=== PATIENT | male | born 1960 | race Caucasian/White ===

== ENCOUNTER 2016-11-18 21:36 | Inpatient (IN) | payer OTHER ==
[~2016-11-18] VITALS: Ht 172.7 cm; Wt 85.9 kg
[~2016-11-18 21:36] MED LIST: ASPI81 PO; BYST5TAB2 PO; LORA-474 PO; PRED5 PO; WELL150T PO; ZIPR1CAP27 PO
[2016-11-18 21:39] VITALS: BP 128/87; PULSE 68; RESP 18; TEMP 97.7; O2SAT 96
[2016-11-18] MEDS ORDERED: methylPREDNISolone SOD SUCC 125 MG/2 ML VIAL IVP ONE (22:00)
[2016-11-18] MEDS ORDERED: SODIUM CHLORIDE 0.9% FLUSH 5 ML FLUSH IVF PRN ×2 (22:00→23:30)
[2016-11-18] MEDS ORDERED: DILT90CA PO (22:03)
[2016-11-18] MEDS ORDERED: TRAZ100T4 PO (22:03)
[2016-11-18] MEDS ORDERED: LAMO150 PO (22:05)
[2016-11-18] MEDS ORDERED: CITA20TA4 PO (22:05)
[2016-11-18] MEDS ORDERED: ASPI81CH CHEW (22:05)
[2016-11-18] MEDS ORDERED: LOVA20TA PO (22:05)
[2016-11-18] MEDS: RESP: ALBUTEROL 2.5 MG/3 ML NEB (SCH) INH ×2 (22:05→22:06)
--- NOTE | 2016-11-18 22:16 | RADHPO ---
EXAM DATE/TIME: 11/18/2016 22:03 [facility] COMPARISON: No previous studies available for comparison. INDICATIONS : Shortness of breath. MEDICAL HISTORY : Hypertension. Myocardial infarction. Hiatal hernia. GERD, Gout SURGICAL HISTORY : Coronary artery stent. Appendectomy. Cholecystectomy. Inguinal hernia repair ENCOUNTER: Initial ACUITY: 1 week PAIN SCORE: 0/10 LOCATION: Bilateral chest FINDINGS: The heart size is enlarged. The lungs demonstrate diffuse increased interstitial markings. No focal consolidation is seen. No effusion is seen. CONCLUSION: Cardiomegaly with increased interstitial markings likely representing CHF. Lamine Harkins MD on November 18, 2016 at 22:10 Board Certified Radiologist. This report was verified electronically.
[2016-11-18 22:29] LABS: BASOPHIL # 0.1 TH/MM3 (0-0.2); EOSINOPHIL # 0.2 TH/MM3 (0-0.4); EOSINOPHIL % 3.3 % (0.0-4.0); HEMATOCRIT 32.9 % (39.0-51.0); HEMO FLAGS DIFF FINAL; LYMPH % 20.1 % (9.0-44.0); LYMPHOCYTE # 1.5 TH/MM3 (1.0-4.8); MEAN CORPUSCULAR HEMOGLOBIN 28.5 PG (27.0-34.0); MEAN CORPUSCULAR HGB CONC 32.7 % (32.0-36.0); MONO % 7.1 % (0.0-8.0); NEUT % 68.5 % (16.0-70.0); PLATELET COUNT 336 TH/MM3 (150-450); RED BLOOD COUNT 3.78 MIL/MM3 (4.50-5.90); RED CELL DISTRIBUTION WIDTH 13.6 % (11.6-17.2); WHITE BLOOD COUNT 7.3 TH/MM3 (4.0-11.0)
--- NOTE | 2016-11-18 22:29 | PD ---
HPI Chief Complaint: Respiratory Symptoms Time Seen by Provider: 21:52 Travel History International Travel<30 days: No Contact w/Intl Traveler<30days: No Traveled to known affect area: No History of Present Illness HPI 56-year-old male arrives to the ER complaining of shortness of breath. It has been bothersome for about 1 week. 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 Often he has to rest while working. He has a history of coronary artery disease with a stent. He takes aspirin daily. She's had no chest pain. He was seen and evaluated at an outside hospital about a week ago and diagnosed with cellulitis of the bilateral lower extremities and has been on Bactrim and amoxicillin. He was also diagnosed with streptococcal pharyngitis at that time. Cellulitic and pharyngitis symptoms have improved significantly however the shortness of breath has persisted prompting ER evaluation. PFSH Past Medical History Depression: Yes Cancer: No Cerebrovascular Accident: Yes (HEART ATTACK 2000/STENT PLACED) Diminished Hearing: No Endocrine: No GERD: Yes Gout: Yes Genitourinary: No Hiatal Hernia: Yes Hypertension: Yes Immune Disorder: No Inguinal Hernia: Yes (Repaired 2001) Implanted Vascular Access Dvce: Yes Musculoskeletal: Yes Neurologic: No Psychiatric: Yes Reproductive: No Respiratory: No Myocardial Infarction: Yes (2000) Tetanus Vaccination: < 5 Years Influenza Vaccination: No Past Surgical History Appendectomy: Yes (1972) Body Medical Devices: CARDIAC STENT Cardiac Surgery: Yes (Stent 2000) Cholecystectomy: Yes (1998) Other Surgery: Yes (Inguinal Hernia Repair 2001) Social History Alcohol Use: No (Hx Abuse; Sober 13 years.) Tobacco Use: Yes (1PPD) Substance Use: No (Hx ETOH Abuse - States sober 12 years; Experimentation & Use many yrs ago.) Allergies-Medications (Allergen,Severity, Reaction): Coded Allergies: Cipro (Verified Allergy, Mild, Rash, 11/18/16) Reported Meds & Prescriptions Reported Meds & Active Scripts Active Reported Aspirin 81 Mg Chew 81 Mg CHEW DAILY Lamictal (Lamotrigine) 150 Mg Tab 150 Mg PO DAILY Citalopram (Citalopram Hydrobromide) 20 Mg Tab 20 Mg PO DAILY Lovastatin 20 Mg Tab 20 Mg PO DAILY Trazodone (Trazodone HCl) 100 Mg Tab 100 Mg PO HS PRN Diltiazem ER 12 HR (Diltiazem HCl) 90 Mg Caper 90 Mg PO BID Review of Systems Except as stated in HPI: all other systems reviewed are Neg Physical Exam Narrative GENERAL: 56 yo M, WNWD, NAD SKIN: Warm and dry. HEAD: Atraumatic. Normocephalic. EYES: Pupils equal and round. No scleral icterus. No injection or drainage. ENT: No nasal bleeding or discharge. Mucous membranes pink and moist. NECK: Trachea midline. +JVD present. CARDIOVASCULAR: Regular rate and rhythm. RESPIRATORY: No tachypnea. Rales present bilaterally. Wheezing present bilaterally. GASTROINTESTINAL: Abdomen soft, non-tender, nondistended. Hepatic and splenic margins not palpable. MUSCULOSKELETAL: Occasional well healed LE skin lesions. No significant edema lower extremities. No gross deformity. NEUROLOGICAL: Awake and alert. No obvious cranial nerve deficits. Motor grossly within normal limits. Five out of 5 muscle strength in the arms and legs. Normal speech. PSYCHIATRIC: Appropriate mood and affect; insight and judgment normal. Data Data Last Documented VS Vital Signs Date Time Temp Pulse Resp B/P Pulse Ox O2 Delivery O2 Flow Rate FiO2 11/18/16 22:10 92 Nasal Cannula 2 11/18/16 22:10 82 24 11/18/16 21:39 97.7 128/87 Orders Complete Blood Count With Diff (11/18/16 21:58) Comprehensive Metabolic Panel (11/18/16 21:58) B-Type Natriuretic Peptide (11/18/16 21:58) Act Partial Throm Time (Ptt) (11/18/16 21:58) Prothrombin Time / Inr (Pt) (11/18/16 21:58) Ckmb (Isoenzyme) Profile (11/18/16 21:58) Troponin I (11/18/16 21:58) Blood Culture (11/18/16 21:58) Iv Access Insert/Monitor (11/18/16 21:58) Electrocardiogram (11/18/16 21:58) Ecg Monitoring (11/18/16 21:58) Oximetry (11/18/16 21:58) Oxygen Administration (11/18/16 21:58) Chest, Single Ap (11/18/16 21:58) Sodium Chloride 0.9% Flush (Ns Flush) (11/18/16 22:00) Methylprednisolone So Succ Inj (Solumedr (11/18/16 22:00) Albuterol Neb (Albuterol Neb) (11/18/16 22:00) Furosemide Inj (Lasix Inj) (11/18/16 22:30) CKMB (11/18/16 22:15) CKMB% (11/18/16 22:15) Admit Order (Ed Use Only) (11/18/16 23:16) Furosemide Inj (Lasix Inj) (11/18/16 23:30) Labs Laboratory Tests Test 11/18/16 22:15 White Blood Count 7.3 TH/MM3 Red Blood Count 3.78 MIL/MM3 Hemoglobin 10.8 GM/DL Hematocrit 32.9 % Mean Corpuscular Volume 87.0 FL Mean Corpuscular Hemoglobin 28.5 PG Mean Corpuscular Hemoglobin 32.7 % Concent Red Cell Distribution Width 13.6 % Platelet Count 336 TH/MM3 Mean Platelet Volume 7.4 FL Neutrophils (%) (Auto) 68.5 % Lymphocytes (%) (Auto) 20.1 % Monocytes (%) (Auto) 7.1 % Eosinophils (%) (Auto) 3.3 % Basophils (%) (Auto) 1.0 % Neutrophils # (Auto) 5.0 TH/MM3 Lymphocytes # (Auto) 1.5 TH/MM3 Monocytes # (Auto) 0.5 TH/MM3 Eosinophils # (Auto) 0.2 TH/MM3 Basophils # (Auto) 0.1 TH/MM3 CBC Comment DIFF FINAL Differential Comment Prothrombin Time 12.2 SEC Prothromb Time International 1.1 RATIO Ratio Activated Partial 29.4 SEC Thromboplast Time Sodium Level 137 MEQ/L Potassium Level 4.3 MEQ/L Chloride Level 104 MEQ/L Carbon Dioxide Level 24.1 MEQ/L Anion Gap 9 MEQ/L Blood Urea Nitrogen 28 MG/DL Creatinine 0.92 MG/DL Estimat Glomerular Filtration 84 ML/MIN Rate Random Glucose 100 MG/DL Calcium Level 8.4 MG/DL Total Bilirubin 0.3 MG/DL Aspartate Amino Transf 78 U/L (AST/SGOT) Alanine Aminotransferase 103 U/L (ALT/SGPT) Alkaline Phosphatase 170 U/L Total Creatine Kinase 108 U/L Creatine Kinase MB 3.8 NG/ML Troponin I 0.05 NG/ML B-Type Natriuretic Peptide 2348 PG/ML Total Protein 6.9 GM/DL Albumin 3.0 GM/DL MDM Medical Decision Making Medical Screen Exam Complete: Yes Emergency Medical Condition: Yes Medical Record Reviewed: Yes Differential Diagnosis CHF, anemia, pna, ACS, COPD exacerbation Narrative Course EKG: Sinus, rate 58, q waves septal leads CXR: Cardiomegaly, interstitial disease c/w CHF BNP 2300 Tn 0.05 CBC & BMP Diagram 11/18/16 22:15 Pt has new CHF. Lasix started here 20mg x 2. Pt will be admitted for further diagnostic evaluation and treatment. D/w [facility] Sutton [facility] PMD is Lamine Manuel. Pt has yet to be seen in that office. Apparently initial paperwork was completed earlier today. Diagnosis Primary Impression: CHF (congestive heart failure) Qualified Code: I50.9 - Congestive heart failure, unspecified congestive heart failure chronicity, unspecified congestive heart failure type Additional Impression: Dyspnea Qualified Code: R06.00 - Dyspnea, unspecified type Admitting Information Admitting Physician Requests: Lex Christina MD Nov 18, 2016 22:29
[2016-11-18 22:30] VITALS: O2SAT 92
[2016-11-18] MEDS ORDERED: FUROSEMIDE 20 MG/2 ML VIAL IV PUSH ONE ×2 (22:30→23:30)
[2016-11-18 22:45] LABS: CHLORIDE 104 MEQ/L (98-107); POTASSIUM 4.3 MEQ/L (3.5-5.1); SODIUM (NA) 137 MEQ/L (136-145)
[2016-11-18 22:49] LABS: ANION GAP 9 MEQ/L (5-15); BICARBONATE 24.1 MEQ/L (21.0-32.0); BLOOD UREA NITROGEN 28 MG/DL (7-18)
[2016-11-18 22:51] LABS: APTT (PATIENT) 29.4 SEC (24.3-30.1); INTERNATIONAL NORMALIZED RATIO 1.1 RATIO; PROTHROMBIN TIME - PATIENT 12.2 SEC (9.8-11.6)
[2016-11-18 22:52] LABS: ALT (GPT) 103 U/L (12-78); AST (GOT) 78 U/L (15-37); GLOMERULAR FILTRATION RATE 84 ML/MIN (>89)
[2016-11-18 22:54] LABS: TOTAL BILIRUBIN ADULT 0.3 MG/DL (0.2-1.0)
[2016-11-18 22:55] LABS: ALKALINE PHOSPHATASE 170 U/L (45-117); CREATINE KINASE 108 U/L (39-308)
[2016-11-18 23:07] LABS: CKMB 3.8 NG/ML (0.5-3.6)
[2016-11-18 23:24] VITALS: BP 117/80; PULSE 72; RESP 20; TEMP 98.1; O2SAT 92
[2016-11-19] VITALS (10 sets, daily range): BP systolic 103–124; BP diastolic 64–88; PULSE 62–92; RESP 16–20; TEMP 96.6–98.4; O2SAT 94–99
[2016-11-19 06:17] LABS: POTASSIUM 4.1 MEQ/L (3.5-5.1)
[2016-11-19 06:20] LABS: BICARBONATE 24.6 MEQ/L (21.0-32.0)
[2016-11-19] MEDS: FUROSEMIDE 40 MG/4 ML VIAL IVP SCH ×2 (08:55→16:43)
[2016-11-19] MEDS: ENOXAPARIN SODIUM 40 MG/0.4 ML SYRINGE SQ SCH (08:55)
[2016-11-19] MEDS: ASPIRIN 81 MG CHEW TAB CHEW SCH (08:55)
[2016-11-19] MEDS: SODIUM CHLORIDE 0.9% FLUSH 5 ML FLUSH IVF SCH ×2 (08:56→22:12)
[2016-11-19] MEDS ORDERED: PRAVASTATIN SOD 20 MG TAB PO SCH (09:00)
[2016-11-19] MEDS ORDERED: DILTIAZEM-CD 180 MG CAP ER PO SCH (09:00)
[2016-11-19] MEDS ORDERED: ASPIRIN 81 MG CHEW TAB CHEW SCH (09:00)
[2016-11-19] MEDS: lamoTRIgine 100 MG TAB PO SCH (09:00)
[2016-11-19] MEDS ORDERED: PILL SPLITTER OTHER PRN (09:15)
[2016-11-19] MEDS: SULFAMETHOXAZOLE-TRIMETHOPRIM DS 800-160 MG TAB PO SCH ×2 (09:59→22:12)
[2016-11-19] MEDS: LISINOPRIL 5 MG TAB PO SCH (09:59)
[2016-11-19] MEDS: CITALOPRAM HYDROBROMIDE 20 MG TAB PO SCH (09:59)
--- NOTE | 2016-11-19 10:02 | MH ---
cc: SEDA CRABTREE MD DATE OF ADMISSION: 11/18/2016 DATE OF His 1960 ADMISSION DIAGNOSES 1. Congestive heart failure. 2. History of coronary artery disease with prior PTCA and stent and prior MA in 2000. 3. Hypertension. 4. Hyperlipidemia. 5. Chronic depression. 6. Gastroesophageal reflux disease/hiatal hernia. 7. History of esophageal dilations. 8. Recent strep throat. 9. Recent MRSA skin infections on the lower extremities. 10. Mildly elevated liver function tests. PERTINENT HISTORY This is a 56-year-old white male who came in because of progressive increasing shortness of breath mainly on exertion over the last 9-10 days. He actually was in the emergency room at [facility] earlier on the . He then had a sore throat and these skin sores on both lower extremities. He was put on Bactrim DS for what sounds like MRSA infection and then a throat swab was positive for strep and was put on amoxicillin which he has been taking. He states that the throat symptoms have resolved and the sores have dried up and are scabbed over now. He has no fever. His main symptom has just been the progressive shortness of breath. He had no chest pain. He has never had congestive heart failure. In the ED his BNP was 2348. Chest x-ray showed cardiomegaly with increased interstitial markings likely representing CHF. He was put on diuretic therapy last night in the ED and states his breathing is much better this morning. He is not in any distress. MEDICAL HISTORY He had a heart attack in 2000 with a PTCA and stent placed by Dr. Bravo his erp technical lead. He is under treatment for hypertension, hyperlipidemia. He denies any heart failure. He denies any lung disease. No asthma, TB, pneumonia. Denies any COPD. He is not on any breathing medication. He denies any diabetes, liver or kidney disease. No peptic ulcer disease. He has had gastroesophageal reflux disease and hiatal hernia and also has had esophageal dilation three to four times. He has had no cancer, prostate disease or thyroid problems. No colon disease and no history of polyps. He states he had a colonoscopy around 2011 and there was only one that was negative. He is under treatment for chronic depression. PAST SURGICAL HISTORY 1. Appendectomy. 2. Tonsillectomy and adenoidectomy. 3. Wing teeth extraction. 4. Laparoscopic cholecystectomy. 5. Appendectomy. 6. PTCA with stent. 7. Laparoscopic right inguinal hernia repair with mesh. ALLERGIES APPARENTLY HE HAD HIVES WITH CIPRO IN THE PAST. HE ALSO HAD HIVES A YEAR OR SO AGO AND WENT TO AN MAGNETIC PROSPECTOR AND WAS TAKEN OFF TOPROL AND HIS HIVES WENT AWAY. HE HAD A PROBLEM WITH A MEDICATION THAT IS NO LONGER ON THE MARKER VIOXX. MEDICATIONS 1. Aspirin 81 mg daily. 2. Lamictal 150 mg daily as a mood stabilizer for his depression. 3. Citalopram 20 mg a day for depression. 4. Lovastatin 20 mg a day for hyperlipidemia. 5. Trazodone 100 mg that he uses for sleep. 6. Diltiazem Extended Release 90 mg twice a day. FAMILY HISTORY His parents are living and elderly, he cares for them. His mother is age 86, she has stage IV chronic kidney disease, she has a history of CHF. Father is also living and 84, a retired physician. He has heart disease, prior coronary artery bypass grafting. He has had diabetes, hypertension, hyperlipidemia, depression. SOCIAL HISTORY He has never been . He lives and takes care of his parents. He started smoking at age 26 and smokes half to one pack a day approximately 30 years now. He rarely uses alcohol. 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 REVIEW OF SYSTEMS GENERAL: No fever, chills, sweats. HEENT: He had the recent sore throat, diagnosed with strep. He is still finishing up a couple more days of amoxicillin. His symptoms have resolved. No runny nose. CARDIOVASCULAR: No chest pain. He has had the exertional dyspnea as mentioned. No significant cough. GASTROINTESTINAL: No current heartburn, indigestion. No melena, rectal bleeding, diarrhea or constipation. GENITOURINARY: No dysuria, urgency, frequency. EXTREMITIES: Without swelling. SKIN: As mentioned. NEUROLOGIC: No focal findings. PHYSICAL EXAMINATION GENERAL: A pleasant white male in no acute distress. VITAL SIGNS: His temp is 96.9, pulse 69, respiration 18, BP 120/79, O2 sat 97%. HEENT: TMs clear. Pupils equal. Sclerae are nonicteric. Nose without lesion. Mouth without inflammation or lesion. NECK: Without bruit. No JVD. HEART: Regular rate and rhythm. No murmur. LUNGS: Just some very faint crackles in the bases. ABDOMEN: Abdomen is soft, nontender, no masses. EXTREMITIES: No edema. Pulses good in both feet. SKIN: He has some has dried up skin lesions that are scabbed over on both lower extremities primarily on the anterior lower legs consistent with probably a recent MRSA infection that seems to be resolved with the antibiotics. There are no draining lesions. No significant redness of the skin. NEUROLOGIC: Oriented x3. Cranial nerves intact. Motor and sensory intact. IMAGING Chest x-ray with cardiomegaly and mild interstitial edema consistent with heart failure. LABORATORY DATA Troponin was 0.05, albumin 3.0, total protein 6.9, sodium 137, potassium 4.3, chloride 104, CO2 24.1, BUN 28, creatinine 0.92, GFR 84, glucose 100, bilirubin normal. His AST and ALT were mildly elevated at 78 and 103 respectively. His alkaline phosphatase a little elevated at 170. Total CK was 108 which was normal. His BNP was 2348 last night and 2380 today. His troponin this morning was 0.03. ASSESSMENT As noted. PLAN He will be maintained on diuretic. A 2D echo has been ordered. We will repeat a chest x-ray today. Cardiology has been consulted. He is on diuretic therapy for now. We will hold the statin drug due to his elevated liver function test. We will put him on a low dose of lisinopril as his blood pressure is a little toward the low side so we will just maintain him on a low dose of lisinopril. Clinically he is much better and he will probably be able to be discharged tomorrow unless Cardiology thinks he can go home sooner. He will need to followup on his liver function tests as an outpatient with his primary care physician Dr. Faust. He was just a little anemic and told him he should followup with him about that as well. MD YASMANY Burton/ALISA /8:50 AM /9:05 AM
--- NOTE | 2016-11-19 11:16 | RADHPO ---
EXAM DATE/TIME: 11/19/2016 10:43 [facility] COMPARISON: No previous studies available for comparison. INDICATIONS : New onset CHF, cough, short of breath MEDICAL HISTORY : None. SURGICAL HISTORY : None. ENCOUNTER: Subsequent ACUITY: 2 days PAIN SCORE: 0/10 LOCATION: Bilateral chest FINDINGS: PA and lateral views of the chest demonstrate the lungs to be symmetrically aerated without evidence of mass, infiltrate or effusion. A small underlying bilaterally. Some crowding of the bronchovascular markings. The cardiomediastinal contours are unremarkable. Osseous structures are intact. CONCLUSION: Some crowding of the bronchovascular markings with small lung volumes. No obvious foc al infiltrate. Jaxon Martin MD on November 19, 2016 at 11:14 Board Certified Radiologist. This report was verified electronically.
[2016-11-19] MEDS: AMOXICILLIN 875 MG TAB PO SCH ×2 (11:42→22:12)
--- NOTE | 2016-11-19 12:34 | MB ---
cc: RICKY GOSS MD DATE OF CONSULTATION: 11/19/2016 REASON FOR CONSULTATION: New onset congestive heart failure. HISTORY OF PRESENT ILLNESS: The patient is a very pleasant 56 year-old gentleman with a history of coronary artery disease, with a previous stent placed by Dr. 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 He does say he had a nuclear stress test about a year ago which she said did not show any problems but it is unclear the exact results. Over the last several weeks the patient has been having some sores appear his leg and he was told he had MRSA and was given antibiotics and cream but this has not been effective. These have been getting worse and over the last couple days he began having more shortness of breath with orthopnea and because of the symptoms he presented to the emergency department in clinical congestive heart failure. He was started on Lasix and is feeling better not completely back to baseline though he denies chest pain, lightheadedness, dizziness, syncope. PAST MEDICAL HISTORY 1. Coronary artery disease status post remote stent. 2. MRSA. 3. Cellulitis 4. Myocardial infarction. 5. Tobacco abuse. MEDICATIONS home medications include; 1. Aspirin 2. Lamictal. 3. Saltpan 4. Lovastatin. 5. Trazodone. 6. Diltiazem. 7. Current medications include. Lisinopril 2.5 mg daily. 8. Amoxicillin 9. Lasix 40 mg IV b.i.d. 10. Lovenox 40 mg Subcu q. 12. 11. Aspirin 81 milligrams daily. 12. Celexa 13. Lamictal 14. Cardizem 180 mg daily. ALLERGIES CIPRO PHYSICAL EXAMINATION VITAL SIGNS: Afebrile, pulse 72, respiratory rate 16, BP 116/77 satting 97% on 2 liters. IN GENERAL: Very pleasant well-appearing gentleman in no distress. NECK: No JVD. LUNGS: Decreased breath sounds in the bases bilaterally. CARDIOVASCULAR SYSTEM: Regular rate and rhythm at a 1-2/6 systolic murmurs appreciated. ABDOMEN: Abdomen is benign. EXTREMITIES: No edema of multiple post cellulitic lesions are present. LABORATORY DATA Sodium 36,004.1513, bicarb 24.6, BUN 21, creatinine 0.89, glucose 127. Troponins are negative x2. BNP is 2380, white count 7.3, hematocrit 32.9, platelets used 36. EKG shows a life fluids. Return. Start EKG showed good appears to be a junctional rhythm that 58, though with possible he has either a very long first-degree AV block were very small P-waves which are difficult to the her difficult to interpret this particular 12-lead and 78, 12, we will be repeated IMPRESSION 1. Congestive heart failure, The patient likely has acute systolic congestive heart failure. An echocardiogram will be ordered to confirm his LV function. Another possibility is valvular Congestive heart failure due to endocarditis given his infectious process but do not hear any major murmurs on his exam blood cultures are currently pending as well as an echocardiogram. Should his echocardiogram or blood cultures be more concerning for endocarditis. I would then consider Transesophageal echocardiogram at that point. Regarding his medication. He is already on IV Lasix and CRISTIAN inhibitor I will change his calcium channel jameson to the beta jameson for presumed systolic dysfunction. 2. Cellulitis. He is already on antibiotics and the other infectious management plan as detailed above. Further recommendations based on his clinical course. Thank you again for the opportunity to participate this patient's care. MD GRACE Singh/brady /9:28 AM /12:26 PM
--- NOTE | 2016-11-19 14:31 | EKG ---
Date Performed: 11/18/2016 Time Performed: 22:16:36 PTAGE: 56 years EKG: Sinus bradycardia Prolonged QT interval Possible anterior infarct - age undetermined Inferi or T wave changes are nonspecific Compared to previous tracing, QTC has prolonged Clinical correlatio n reccomended Abnormal ECG PREVIOUS TRACING : 06/12/2010 09.37 DOCTOR: Harsh Israel Interpretating Date/Time 11/19/2016 14:29:34
--- NOTE | 2016-11-19 14:33 | EKG ---
Date Performed: 11/18/2016 Time Performed: 22:29:40 PTAGE: 56 years EKG: Possible idioventricular rhythm with slow ventricular response IV conduction defect Anterio r infarct - age undetermined Lateral T wave changes are nonspecific Prolonged corrected QT interval, continues to increase Clincal correlation reccomended Abnormal ECG PREVIOUS TRACING : 11/18/2016 22.16 DOCTOR: Harsh Israel Interpretating Date/Time 11/19/2016 14:32:04
--- NOTE | 2016-11-19 16:48 | RADHPO ---
EXAM DATE/TIME: 11/19/2016 20:43 [facility] COMPARISON: No previous studies available for comparison. INDICATIONS : Elevated LFT's. MEDICAL HISTORY : Hypertension. Myocardial infarction. SURGICAL HISTORY : Cholecystectomy. Appendectomy. Inguinal hernia repair. Cardiac stent. ENCOUNTER: Initial ACUITY: 1 day PAIN SCORE: 0/10 LOCATION: Bilateral upper quadrant MEASUREMENTS: LIVER: 19.6 cm length COMMON DUCT: 5 mm RIGHT KIDNEY: 11.0 x 5.0 x 6.0 cm LEFT KIDNEY: 11.6 x 6.4 x 5.0 cm SPLEEN: 12.1 cm length AORTA: not visualized FINDINGS: LIVER: The liver is small and echogenic.. COMMON DUCT: No intraluminal mass or stone visualized. GALLBLADDER: Surgically absent. PANCREAS: By overlying bowel gas. RIGHT KIDNEY: No hydronephrosis, stone or mass. LEFT KIDNEY: No hydronephrosis, stone or mass. SPLEEN: No focal lesion. AORTA: Non aneurysmal. IVC: Within normal limits. CONCLUSION: Small echogenic liver with right pleural effusion. There is no hydronephrosis. There is no ductal d ilatation. Elijah Calhoun MD FACR on November 19, 2016 at 16:43 Board Certified Radiologist. This report was verified electronically.
--- NOTE | 2016-11-19 17:32 | EC ---
Study Study Date:11/19/2016 STUDY CONCLUSIONS SUMMARY - Left ventricle: The cavity size was mildly dilated. Wall thickness was normal. Systolic function was severely reduced. The estimated ejection fraction was in the range of 25% to 30%. Akinesis of the apical myocardium. - Mitral valve: Moderate regurgitation. - Left atrium: The atrium was mildly dilated. - Tricuspid valve: Moderate regurgitation. - Pulmonary arteries: Systolic pressure was moderately to severely increased. PA peak pressure: 75mm Hg (S). - Pericardium, extracardiac: A trivial pericardial effusion was identified. There was no evidence of hemodynamic compromise. If LV function is below 40, please consider prescribing an ACEI or ARB or document rationale for non-use. PROCEDURE DATA STUDY STATUS: Elective. Procedure: Transthoracic echocardiography. Image quality was good. Scanning was performed from the parasternal, apical, and subcostal acoustic windows. Study completion: The patient tolerated the procedure well. Transthoracic echocardiography. M-mode, complete 2D, complete spectral Doppler, and color Doppler. Patient status: Inpatient. CARDIAC ANATOMY LEFT VENTRICLE: The cavity size was mildly dilated. Wall thickness was normal. Systolic function was severely reduced. The estimated ejection fraction was in the range of 25% to 30%. Regional wall motion abnormalities: Akinesis of the apical myocardium. AORTIC VALVE: Trileaflet; normal thickness leaflets. Doppler: Transvalvular velocity was within the normal range. There was no stenosis. Trace to mild regurgitation. AORTA: Aortic root: The aortic root was normal in size. MITRAL VALVE: Structurally normal valve. Doppler: Transvalvular velocity was within the normal range. There was no evidence for stenosis. Moderate regurgitation. Peak gradient: 4mm Hg (D). LEFT ATRIUM: The atrium was mildly dilated. RIGHT VENTRICLE: The cavity size was normal. Wall thickness was normal. PULMONIC VALVE: Doppler: Transvalvular velocity was within the normal range. There was no evidence for stenosis. No regurgitation. TRICUSPID VALVE: Structurally normal valve. Doppler: Transvalvular velocity was within the normal range. Moderate regurgitation. PULMONARY ARTERY: The main pulmonary artery was normal-sized. Systolic pressure was moderately to severely increased. RIGHT ATRIUM: The atrium was normal in size. PERICARDIUM: A trivial pericardial effusion was identified. There was no evidence of hemodynamic compromise. SYSTEMIC VEINS: Inferior vena cava: The vessel was normal in size. BASIC MEASUREMENTS ADULT Normal Left ventricle LV internal dimension, ED, chordal level, *62.1 mm 43-52 PLAX LV internal dimension, ES, chordal level, *55.8 mm 23-38 PLAX Fractional shortening, chordal level, PLAX *10 % >29 LV posterior wall thickness, ED 7.7 mm IVS/LVPW ratio, ED *1.66 <1.3 Volume, ED, MOD, 1-plane 318 ml Volume, ES, MOD, 1-plane 235 ml Ejection fraction, MOD, 1-plane 26 % Stroke volume, MOD, 1-plane 83 ml Volume, ED, MOD, 2-plane 289 ml Volume, ES, MOD, 2-plane 216 ml Ejection fraction, MOD, 2-plane 25 % Stroke volume, MOD, 2-plane 73 ml Ventricular septum Septal thickness, ED 12.8 mm Aortic valve Leaflet separation 23 mm 15-26 Left atrium Anterior-posterior dimension 42 mm Right ventricle RV internal dimension, ED, PLAX 23.6 mm 19-38 BASIC MEASUREMENTS ADULT Normal Aortic valve Leaflet separation 23 mm 15-26 Aorta Root diameter, ED *40 mm 20-37 DOPPLER MEASUREMENTS ADULT Normal Main pulmonary artery Pressure, S *75 mm Hg =30 Mitral valve Peak E-wave velocity 105 cm/s Peak A-wave velocity 43.2 cm/s Peak gradient, D 4 mm Hg Peak E/A ratio 2.4 Maximal regurgitant velocity 471 cm/s Tricuspid valve Regurgitant peak velocity 379 cm/s Peak RV-RA gradient, S 57 mm Hg Maximal regurgitant velocity 379 cm/s Systemic veins Estimated CVP 10 mm Hg Right ventricle RV pressure, S *75 mm Hg <30 LEGEND: Mean values are shown as u=mean value. Asterisk (*) arnold values outside specified normal range. Amended Dieter Stephens [id number]
[2016-11-19] MEDS: traZODone HCL 100 MG TAB PO PRN (22:18)
[2016-11-20] VITALS (8 sets, daily range): BP systolic 105–119; BP diastolic 70–86; PULSE 60–70; RESP 16–20; TEMP 96.7–98.7; O2SAT 94–97
--- NOTE | 2016-11-20 07:04 | HHI.PR ---
Subjective Remarks No chest pain. No shortness of breath. He states he feels much better. Objective Vitals Vital Signs Date Time Temp Pulse Resp B/P Pulse Ox O2 Delivery O2 Flow Rate FiO2 11/20/16 04:00 98.0 70 16 110/82 97 11/20/16 00:00 97.9 66 18 109/79 96 11/19/16 20:59 97.5 78 16 103/70 94 11/19/16 20:00 82 11/19/16 16:00 98.3 74 18 124/86 97 11/19/16 12:00 98.3 62 18 120/86 97 11/19/16 08:00 73 11/19/16 08:00 98.0 72 16 116/77 97 11/19/16 11/19/16 11/20/16 15:00 23:00 07:00 Intake Total 0 ml 0 ml Output Total 850 ml 1350 ml Balance -850 ml -1350 ml 0 ml Intake IV Total 0 ml 0 ml Output Urine Total 850 ml 1350 ml Result Diagram: 11/18/16 2215 11/19/16 0600 Other Results Lab today pending Imaging Last Impressions Chest X-Ray 11/19/16 0000 Signed Impressions: Service Date/Time: Saturday, November 19, 2016 10:43 - CONCLUSION: Some crowding of the bronchovascular markings with small lung volumes. No obvious focal infiltrate. Jaxon Martin MD Last Impressions 2D echo showed akinesis of the apical myocardium and an EF of 25-30%. His pulmonary artery pressure was elevated at 75mm Hg. There was moderate mitral regurgitation Objective Remarks Exam: Pleasant white male in no distress HEENT: pupils equal, no scleral icterus, mouth neg Neck: No JVD Heart: RRR with grade 1/6 systolic murmur Lung: Appear clear Abdomen: Soft, nontender, no masses Extremities: No edema Skin: He has some nondraining scabbed over skin lesions on both legs c/w healing MRSA infection Neuro: Alert, no deficits A/P Assessment and Plan Assessment: --Congestive heart failure that is clinical much improved. His 2D echo showed an EF of 25-30% with akinesis of the apical myocardium --Coronary artery disease with prior CT and prior PTCA with stent --Hypertension --Hyperlipidemia --Elevated liver function tests--possibly secondary to statin drug --Chronic major depression--stable on medication --Pulmonary hypertension --GERD/Hiatal hernia/Hx of esophageal dilations in the past --MRSA skin infection--pretty much resolved on Bactrim Plan: Continue Lisinopril and Carvedilol. Patient is on Lasix. Further cardiac workup as per cardiology. Continue antibiotics. Harsh Sutton MD Nov 20, 2016 07:04
[2016-11-20 07:56] LABS: AUTOMATED NEUTROPHIL # 7.1 TH/MM3 (1.8-7.7); BASOPHIL % 0.1 % (0.0-2.0); EOSINOPHIL # 0.1 TH/MM3 (0-0.4); HEMO FLAGS DIFF FINAL; LYMPH % 19.1 % (9.0-44.0); MEAN CELL VOLUME 87.5 FL (80.0-100.0); MEAN CORPUSCULAR HEMOGLOBIN 29.5 PG (27.0-34.0); MEAN CORPUSCULAR HGB CONC 33.7 % (32.0-36.0); MONO % 10.5 % (0.0-8.0); NEUT % 69.3 % (16.0-70.0); PLATELET COUNT 366 TH/MM3 (150-450); RED CELL DISTRIBUTION WIDTH 13.6 % (11.6-17.2); WHITE BLOOD COUNT 10.3 TH/MM3 (4.0-11.0)
[2016-11-20 08:03] LABS: POTASSIUM 3.9 MEQ/L (3.5-5.1)
[2016-11-20 08:07] LABS: BICARBONATE 28.5 MEQ/L (21.0-32.0)
[2016-11-20] MEDS: AMOXICILLIN 875 MG TAB PO SCH ×2 (08:36→23:15)
[2016-11-20] MEDS: SULFAMETHOXAZOLE-TRIMETHOPRIM DS 800-160 MG TAB PO SCH ×2 (08:37→23:15)
[2016-11-20] MEDS: CITALOPRAM HYDROBROMIDE 20 MG TAB PO SCH (08:37)
[2016-11-20] MEDS: ASPIRIN 81 MG CHEW TAB CHEW SCH (08:37)
[2016-11-20] MEDS: LISINOPRIL 5 MG TAB PO SCH (08:38)
[2016-11-20] MEDS: lamoTRIgine 100 MG TAB PO SCH (08:39)
[2016-11-20] MEDS: FUROSEMIDE 40 MG/4 ML VIAL IVP SCH ×2 (08:40→17:42)
[2016-11-20] MEDS: SODIUM CHLORIDE 0.9% FLUSH 5 ML FLUSH IVF SCH ×2 (08:41→23:14)
[2016-11-20] MEDS: ENOXAPARIN SODIUM 40 MG/0.4 ML SYRINGE SQ SCH (08:41)
[2016-11-20] MEDS ORDERED: LISINOPRIL 5 MG TAB PO SCH (09:00)
[2016-11-20] MEDS ORDERED: CARVEDILOL 3.125 MG TAB PO SCH (09:00)
--- NOTE | 2016-11-20 09:05 | PD.CARD.PN ---
Subjective Subjective Remarks Still mild sob but significantly improved. Objective Medications Administered Medications Medications (Trade) Dose Ordered Sig/Bradley Route PRN Reason Start Time Stop Time Status Last Admin Dose Admin IV Flush (NS Flush) 2 ml BID IVF 11/19/16 09:00 11/20/16 08:41 Furosemide (Lasix Inj) 40 mg BID@09,18 IVP 11/19/16 09:00 11/20/16 08:40 Enoxaparin Sodium (Lovenox Inj) 40 mg Q24H SQ 11/19/16 09:00 11/20/16 08:41 Aspirin (Aspirin Chew) 81 mg DAILY CHEW 11/19/16 09:00 11/20/16 08:37 Citalopram Hydrobromide (CeleXA) 20 mg DAILY PO 11/19/16 09:00 11/20/16 08:37 Lamotrigine (LaMICtal) 150 mg DAILY PO 11/19/16 09:00 11/20/16 08:39 Trazodone HCl (Desyrel) 100 mg HS PRN PO PAIN SCALE 1 TO 10 11/19/16 08:45 11/19/16 22:18 Trimethoprim/ Sulfamethoxazole (Bactrim Ds 800-160 Mg) 1 tab Q12HR PO 11/19/16 09:00 11/20/16 08:37 Amoxicillin (Trimox) 875 mg Q12HR PO 11/19/16 10:00 11/20/16 08:36 Lisinopril (Prinivil) 2.5 mg DAILY PO 11/19/16 10:00 11/20/16 08:38 Carvedilol (Coreg) 3.125 mg Q12HR PO 11/20/16 09:00 11/20/16 08:38 Vital Signs / I&O Vital Signs Date Time Temp Pulse Resp B/P Pulse Ox O2 Delivery O2 Flow Rate FiO2 11/20/16 08:00 97.3 65 18 119/86 95 11/20/16 04:00 98.0 70 16 110/82 97 11/20/16 00:00 97.9 66 18 109/79 96 11/19/16 20:59 97.5 78 16 103/70 94 11/19/16 20:00 82 11/19/16 16:00 98.3 74 18 124/86 97 11/19/16 12:00 98.3 62 18 120/86 97 I/O 11/19/16 11/19/16 11/19/16 11/20/16 11/20/16 11/20/16 07:00 15:00 23:00 07:00 15:00 23:00 Intake Total 0 ml 0 ml Output Total 1950 ml 850 ml 1350 ml Balance -1950 ml -850 ml -1350 ml 0 ml Intake IV Total 0 ml 0 ml Output Urine Total 1950 ml 850 ml 1350 ml # Voids 7 Physical Exam GENERAL: This is a well-nourished, well-developed patient, in no apparent distress. CARDIOVASCULAR: Regular rate and rhythm without murmurs, gallops, or rubs. RESPIRATORY: Clear to auscultation. Breath sounds equal bilaterally. No wheezes , rales, or rhonchi. GASTROINTESTINAL: Abdomen soft, non-tender, nondistended. Normal active bowel sounds MUSCULOSKELETAL: Extremities without clubbing, cyanosis, or edema; multiple infectious lesions present NEURO: Alert & Oriented x4 to person, place, time, situation. Moves all ext x4 Laboratory Laboratory Tests Test 11/19/16 11/20/16 10:30 06:45 Troponin I 0.02 NG/ML White Blood Count 10.3 TH/MM3 Red Blood Count 4.00 MIL/MM3 Hemoglobin 11.8 GM/DL Hematocrit 35.0 % Mean Corpuscular Volume 87.5 FL Mean Corpuscular Hemoglobin 29.5 PG Mean Corpuscular Hemoglobin 33.7 % Concent Red Cell Distribution Width 13.6 % Platelet Count 366 TH/MM3 Mean Platelet Volume 7.6 FL Neutrophils (%) (Auto) 69.3 % Lymphocytes (%) (Auto) 19.1 % Monocytes (%) (Auto) 10.5 % Eosinophils (%) (Auto) 1.0 % Basophils (%) (Auto) 0.1 % Neutrophils # (Auto) 7.1 TH/MM3 Lymphocytes # (Auto) 2.0 TH/MM3 Monocytes # (Auto) 1.1 TH/MM3 Eosinophils # (Auto) 0.1 TH/MM3 Basophils # (Auto) 0.0 TH/MM3 CBC Comment DIFF FINAL Differential Comment Sodium Level 138 MEQ/L Potassium Level 3.9 MEQ/L Chloride Level 102 MEQ/L Carbon Dioxide Level 28.5 MEQ/L Anion Gap 8 MEQ/L Blood Urea Nitrogen 22 MG/DL Creatinine 1.00 MG/DL Estimat Glomerular Filtration 77 ML/MIN Rate Random Glucose 97 MG/DL Calcium Level 8.2 MG/DL B-Type Natriuretic Peptide 1615 PG/ML Imaging Last Impressions Chest X-Ray 11/19/16 0000 Signed Impressions: Service Date/Time: Saturday, November 19, 2016 10:43 - CONCLUSION: Some crowding of the bronchovascular markings with small lung volumes. No obvious focal infiltrate. Jaxon Martin MD Assessment and Plan Problem List: (1) Ischemic cardiomyopathy Assessment and Plan: LVEF 25-30%, apical akinesis, on brayan/bb, he declines life- vest, will get a nuc stress to eval for active ischemia. (2) Acute on chronic systolic (congestive) heart failure Assessment and Plan: Improving on lasix. (3) Coronary artery disease Assessment and Plan: prior stent, LAD infarct pattern by echo, nuc stress pending. (4) Infection of skin due to methicillin resistant Staphylococcus aureus (MRSA) Dieter Stephens MD Nov 20, 2016 09:05
[2016-11-20] MEDS: NICOTINE 14 MG/24 HR PATCH TD SCH (14:24)
[2016-11-20] MEDS: REMOVE OLD NICODERM (NICOTINE) PATCH TD SCH (14:24)
--- NOTE | 2016-11-20 15:59 | EKG ---
Date Performed: 11/19/2016 Time Performed: 10:27:06 PTAGE: 56 years EKG: Sinus rhythm . Prolonged QT interval Anterior infarct - age undetermined Inferior T wave changes are nonspecific A ppears to be paced rhythm with small pacer spikes seen in V1,V2,V3 Clinical correlation is strongly r ecommended Largely unchanged from prior Abnormal ECG PREVIOUS TRACING : 11/18/2016 22.29 DOCTOR: Harsh Israel Interpretating Date/Time 11/20/2016 15:57:10
[2016-11-20] MEDS: traZODone HCL 100 MG TAB PO PRN (23:14)
[2016-11-20] MEDS: CARVEDILOL 6.25 MG TAB PO SCH (23:15)
[2016-11-21] VITALS: BP 97/66; PULSE 58; RESP 20; TEMP 98.2; O2SAT 96
[2016-11-21 04:00] VITALS: BP 95/63; PULSE 63; RESP 16; TEMP 97.1; O2SAT 96
[2016-11-21 06:52] LABS: POTASSIUM 4.2 MEQ/L (3.5-5.1)
[2016-11-21 06:56] LABS: BICARBONATE 28.4 MEQ/L (21.0-32.0)
[2016-11-21 08:00] VITALS: BP 146/88; PULSE 63; RESP 18; TEMP 97.7; O2SAT 98
[2016-11-21] MEDS: ENOXAPARIN SODIUM 40 MG/0.4 ML SYRINGE SQ SCH (08:36)
[2016-11-21] MEDS: CARVEDILOL 6.25 MG TAB PO SCH (08:36)
[2016-11-21] MEDS: ASPIRIN 81 MG CHEW TAB CHEW SCH (08:36)
[2016-11-21] MEDS: CITALOPRAM HYDROBROMIDE 20 MG TAB PO SCH (08:36)
[2016-11-21] MEDS: LISINOPRIL 5 MG TAB PO SCH (08:36)
[2016-11-21] MEDS: AMOXICILLIN 875 MG TAB PO SCH (08:36)
[2016-11-21] MEDS: SULFAMETHOXAZOLE-TRIMETHOPRIM DS 800-160 MG TAB PO SCH (08:36)
[2016-11-21] MEDS: NICOTINE 14 MG/24 HR PATCH TD SCH (08:37)
[2016-11-21] MEDS: REMOVE OLD NICODERM (NICOTINE) PATCH TD SCH (08:37)
[2016-11-21] MEDS: lamoTRIgine 100 MG TAB PO SCH (08:37)
[2016-11-21] MEDS: SODIUM CHLORIDE 0.9% FLUSH 5 ML FLUSH IVF SCH (08:39)
--- NOTE | 2016-11-21 08:53 | PD.CARD.PN ---
Subjective Subjective Remarks Pt feels very well, fully compensated, no sob. Objective Medications Administered Medications Medications (Trade) Dose Ordered Sig/Bradley Route PRN Reason Start Time Stop Time Status Last Admin Dose Admin IV Flush (NS Flush) 2 ml BID IVF 11/19/16 09:00 11/21/16 08:39 Enoxaparin Sodium (Lovenox Inj) 40 mg Q24H SQ 11/19/16 09:00 11/21/16 08:36 Aspirin (Aspirin Chew) 81 mg DAILY CHEW 11/19/16 09:00 11/21/16 08:36 Citalopram Hydrobromide (CeleXA) 20 mg DAILY PO 11/19/16 09:00 11/21/16 08:36 Lamotrigine (LaMICtal) 150 mg DAILY PO 11/19/16 09:00 11/21/16 08:37 Trazodone HCl (Desyrel) 100 mg HS PRN PO PAIN SCALE 1 TO 10 11/19/16 08:45 11/20/16 23:14 Trimethoprim/ Sulfamethoxazole (Bactrim Ds 800-160 Mg) 1 tab Q12HR PO 11/19/16 09:00 11/21/16 08:36 Amoxicillin (Trimox) 875 mg Q12HR PO 11/19/16 10:00 11/21/16 08:36 Lisinopril (Prinivil) 2.5 mg DAILY PO 11/19/16 10:00 11/21/16 08:36 Carvedilol (Coreg) 6.25 mg Q12HR PO 11/20/16 21:00 11/21/16 08:36 Nicotine (Habitrol 14 Mg Patch.24 Hr) 1 patch DAILY TD 11/20/16 15:00 11/21/16 08:37 Miscellaneous Information 1 DAILY TD 11/20/16 15:00 11/21/16 08:37 Furosemide (Lasix) 40 mg DAILY PO 11/21/16 09:00 11/21/16 08:40 Vital Signs / I&O Vital Signs Date Time Temp Pulse Resp B/P Pulse Ox O2 Delivery O2 Flow Rate FiO2 11/21/16 08:00 97.7 63 18 146/88 98 11/21/16 04:00 97.1 63 16 95/63 96 11/21/16 00:00 98.2 58 20 97/66 96 1/15/17 20:00 98.7 60 20 105/70 94 11/20/16 19:45 62 11/20/16 16:00 97.2 66 20 114/82 97 11/20/16 12:00 96.7 65 20 107/77 95 11/20/16 09:31 61 I/O 11/20/16 11/20/16 11/20/16 11/21/16 11/21/16 11/21/16 07:00 15:00 23:00 07:00 15:00 23:00 Intake Total 0 ml 240 ml Output Total 1290 ml Balance 0 ml -1050 ml Intake Oral 240 ml IV Total 0 ml 0 ml Output Urine Total 1290 ml # Bowel Movements 1 Physical Exam GENERAL: This is a well-nourished, well-developed patient, in no apparent distress. CARDIOVASCULAR: Regular rate and rhythm without murmurs, gallops, or rubs. RESPIRATORY: Clear to auscultation. Breath sounds equal bilaterally. No wheezes , rales, or rhonchi. GASTROINTESTINAL: Abdomen soft, non-tender, nondistended. Normal active bowel sounds MUSCULOSKELETAL: Extremities without clubbing, cyanosis, or edema; multiple infectious lesions present NEURO: Alert & Oriented x4 to person, place, time, situation. Moves all ext x4 Laboratory Laboratory Tests Test 11/21/16 06:22 Sodium Level 138 MEQ/L Potassium Level 4.2 MEQ/L Chloride Level 101 MEQ/L Carbon Dioxide Level 28.4 MEQ/L Anion Gap 9 MEQ/L Blood Urea Nitrogen 24 MG/DL Creatinine 1.10 MG/DL Estimat Glomerular Filtration 69 ML/MIN Rate Random Glucose 101 MG/DL Calcium Level 8.7 MG/DL B-Type Natriuretic Peptide 836 PG/ML Imaging Last Impressions Chest X-Ray 11/19/16 0000 Signed Impressions: Service Date/Time: Saturday, November 19, 2016 10:43 - CONCLUSION: Some crowding of the bronchovascular markings with small lung volumes. No obvious focal infiltrate. Jaxon Martin MD Abdomen Ultrasound 11/19/16 0000 Signed Impressions: Service Date/Time: Saturday, November 19, 2016 20:43 - CONCLUSION: Small echogenic liver with right pleural effusion. There is no hydronephrosis. There is no ductal dilatation. Elijah Calhoun MD FACR Assessment and Plan Problem List: (1) Ischemic cardiomyopathy Assessment and Plan: LVEF 25-30%, apical akinesis, on brayan/bb, bp up today so will increase meds., he declines life-vest, will get a nuc stress to eval for active ischemia. (2) Acute on chronic systolic (congestive) heart failure Assessment and Plan: compensated on PO lasix now. (3) Coronary artery disease Assessment and Plan: prior stent, LAD infarct pattern by echo, nuc stress pending. (4) Infection of skin due to methicillin resistant Staphylococcus aureus (MRSA) Assessment and Plan If no ischemia on nuc stress ok to d/c home and f/u in my office in 1-2 weeks. Dieter Stephens MD Nov 21, 2016 08:52
[2016-11-21] MEDS ORDERED: FUROSEMIDE 40 MG TAB PO SCH (09:00)
[2016-11-21] MEDS ORDERED: LISINOPRIL 5 MG TAB PO SCH (09:00)
[2016-11-21 12:00] VITALS: BP 140/81; PULSE 68; RESP 19; TEMP 97.2; O2SAT 97
[2016-11-21] MEDS ORDERED: REGADENOSON INJ 0.4 MG/5 ML SYR IV ONE (13:01)
--- NOTE | 2016-11-21 14:10 | RADHPO ---
EXAM DATE/TIME: 11/21/2016 12:41 [facility] COMPARISON: No previous studies available for comparison. INDICATIONS : Shortness of breath and chest pain for three days. Congestive heart failure. DOSE: 26.2 mCi Tc99m Myoview at stress. 8.7 mCi Tc99m Myoview at rest. 0.4 mg Lexiscan STRESS SYMPTOMS: Shortness of breath. EJECTION FRACTION: 14% MEDICAL HISTORY : Myocardial infarction. Hypertension. Cardiovascular disease SURGICAL HISTORY : Coronary artery stent. Inguinal hernia repair. Cholecystectomy. ENCOUNTER: Initial ACUITY: 3 days PAIN SCALE: 5/10 LOCATION: Substernal chest TECHNIQUE: The patient underwent pharmacologic stress with infusion of prescribed dose. Continuous ECG tracing was monitored during stress. Gated SPECT imaging was performed after stress and conventional SPECT i maging was performed at rest. The examination was performed on a SPECT/CT scanner, both attenuation and non-corrected datasets were reviewed. FINDINGS: DISTRIBUTION: The maximum perfused segment at stress is in the lateral wall. PERFUSION STUDY: There is a fixed perfusion defect involving the anterior apical wall. No definite redistribution is d emonstrated on the rest images to suggest ischemic myocardial changes. Perfusion is demonstrated christiano g the lateral, inferior and septal schultz. GATED STUDY: The anterior apical wall is akinetic. There is hypokinesis involving the rest of the ventricle. CONCLUSION: 1. Prominent fixed defect involving the anterior/apical suggestive of an old infarction. No definite redistribution is seen on the rest images. 2. Anterior/apical wall is akinetic. 3. Diffuse hypokinesis with a diminished ejection fraction of 14%. RISK CATEGORY: Low Subhash Mahajan MD on November 21, 2016 at 14:04 Board Certified Radiologist. This report was verified electronically.
[2016-11-21] MEDS ORDERED: FURO1TAB60 PO (15:15)
[2016-11-21] MEDS ORDERED: CARV6.25 PO (15:15)
[2016-11-21] MEDS ORDERED: BACT800T5 PO (15:15)
[2016-11-21] MEDS ORDERED: LISI-519 PO (15:15)
--- NOTE | 2016-11-21 15:47 | HHI.DS ---
Discharge Summary Admission Date Nov 18, 2016 at 23:21 Discharge Date: Nov 21, 2016 Admitting Diagnosis New Onset CHF, Dyspnea (1) CHF (congestive heart failure) Diagnosis: Principal (2) Ischemic cardiomyopathy Diagnosis: Principal (3) Coronary artery disease Diagnosis: Secondary (4) Hx of myocardial infarction Diagnosis: Secondary (5) Hypertension Diagnosis: Secondary (6) Hyperlipidemia Diagnosis: Secondary (7) GERD (gastroesophageal reflux disease) Diagnosis: Secondary (8) Elevated liver function tests Diagnosis: Secondary (9) Infection of skin due to methicillin resistant Staphylococcus aureus (MRSA) Diagnosis: Secondary (10) Normochromic normocytic anemia Diagnosis: Secondary (11) Major depression, chronic Diagnosis: Secondary (12) History of esophageal dilatation Diagnosis: Secondary [facility] (Dr Stephens) Brief History 56 year old white male who came to the ER because of progressive increasing shortness of breath mainly on exertion over the last 9-10 days. He was at the [facility] ER on 11-10-16 for a sore throat and skin sores on his lower extremities. He was put on Bactrim for a likely MRSA infection and on Amoxicillin for a positive throat swab for Strep pharyngitis. His sore throat has resolved and the sores on his legs have begun to scab over and are no longer oozing anything. He came here because of the breathing problem. He denied any chest, edema. He has prior history of a heart attack and PTCA with stent several years ago. He was on medication for hypertension and a statin drug for hyperlipidemia. His BNP in the ED was 2348 and chest x-ray showed cardiomegaly with increased interstitial marking likely CHF. He was put on diuretic therapy and his breathing improved in the first 10 hours. CBC/BMP: 11/20/16 0645 11/21/16 0622 Significant Findings Laboratory Tests Test 11/20/16 11/21/16 06:45 06:22 White Blood Count 10.3 TH/MM3 Red Blood Count 4.00 MIL/MM3 Hemoglobin 11.8 GM/DL Hematocrit 35.0 % Mean Corpuscular Volume 87.5 FL Mean Corpuscular Hemoglobin 29.5 PG Mean Corpuscular Hemoglobin 33.7 % Concent Red Cell Distribution Width 13.6 % Platelet Count 366 TH/MM3 Mean Platelet Volume 7.6 FL Neutrophils (%) (Auto) 69.3 % Lymphocytes (%) (Auto) 19.1 % Monocytes (%) (Auto) 10.5 % Eosinophils (%) (Auto) 1.0 % Basophils (%) (Auto) 0.1 % Neutrophils # (Auto) 7.1 TH/MM3 Lymphocytes # (Auto) 2.0 TH/MM3 Monocytes # (Auto) 1.1 TH/MM3 Eosinophils # (Auto) 0.1 TH/MM3 Basophils # (Auto) 0.0 TH/MM3 CBC Comment DIFF FINAL Differential Comment Sodium Level 138 MEQ/L 138 MEQ/L Potassium Level 3.9 MEQ/L 4.2 MEQ/L Chloride Level 102 MEQ/L 101 MEQ/L Carbon Dioxide Level 28.5 MEQ/L 28.4 MEQ/L Anion Gap 8 MEQ/L 9 MEQ/L Blood Urea Nitrogen 22 MG/DL 24 MG/DL Creatinine 1.00 MG/DL 1.10 MG/DL Estimat Glomerular Filtration 77 ML/MIN 69 ML/MIN Rate Random Glucose 97 MG/DL 101 MG/DL Calcium Level 8.2 MG/DL 8.7 MG/DL B-Type Natriuretic Peptide 1615 PG/ML 836 PG/ML Laboratory Tests Test 11/18/16 11/19/16 11/20/16 11/21/16 22:15 06:00 06:45 06:22 Red Blood Count 3.78 MIL/MM3 4.00 MIL/MM3 (4.50-5.90) (4.50-5.90) Hemoglobin 10.8 GM/DL 11.8 GM/DL (13.0-17.0) (13.0-17.0) Hematocrit 32.9 % 35.0 % (39.0-51.0) (39.0-51.0) Prothrombin Time 12.2 SEC (9.8-11.6) Blood Urea Nitrogen 28 MG/DL (7-18) 21 MG/DL (7-18) 22 MG/DL (7-18) 24 MG/DL (7- 18) Estimat Glomerular Filtration 84 ML/MIN (>89) 88 ML/MIN (>89) 77 ML/MIN (>89) 69 ML/MIN (>89) Rate Calcium Level 8.4 MG/DL 8.4 MG/DL 8.2 MG/DL (8.5-10.1) (8.5-10.1) (8.5-10.1) Aspartate Amino Transf 78 U/L (15-37) (AST/SGOT) Alanine Aminotransferase 103 U/L (12-78) (ALT/SGPT) Alkaline Phosphatase 170 U/L (45-117) Creatine Kinase MB 3.8 NG/ML (0.5-3.6) B-Type Natriuretic Peptide 2348 PG/ML 2380 PG/ML 1615 PG/ML 836 PG/ML (0-100) (0-100) (0-100) (0-100) Albumin 3.0 GM/DL (3.4-5.0) Random Glucose 127 MG/DL (74-106) Monocytes (%) (Auto) 10.5 % (0.0-8.0) Monocytes # (Auto) 1.1 TH/MM3 (0-0.9) Imaging Last Impressions Myocardial Perfusion Scan Nuc Med 11/21/16 0000 Signed Impressions: Service Date/Time: Monday, November 21, 2016 12:41 - CONCLUSION: 1. Prominent fixed defect involving the anterior/apical suggestive of an old infarction. No definite redistribution is seen on the rest images. 2. Anterior/apical wall is akinetic. 3. Diffuse hypokinesis with a diminished ejection fraction of 14%%. RISK CATEGORY: Low Subhash Mahajan MD Chest X-Ray 11/19/16 0000 Signed Impressions: Service Date/Time: Saturday, November 19, 2016 10:43 - CONCLUSION: Some crowding of the bronchovascular markings with small lung volumes. No obvious focal infiltrate. Jaxon Martin MD Abdomen Ultrasound 11/19/16 0000 Signed Impressions: Service Date/Time: Saturday, November 19, 2016 20:43 - CONCLUSION: Small echogenic liver with right pleural effusion. There is no hydronephrosis. There is no ductal dilatation. Elijah Calhoun MD FACR PE at Discharge Exam: Pleasant white male in no distress HEENT: pupils equal, no scleral icterus, mouth neg Neck: No JVD Heart: RRR with grade 1/6 systolic murmur Lung: Appear clear Abdomen: Soft, nontender, no masses Extremities: No edema Skin: He has some nondraining scabbed over skin lesions on both legs c/w healing MRSA infection Neuro: Alert, no deficits Hospital Course Patient was admitted and begun on IV Lasix every 12 hours and a 2D echo was ordered as well as a cardiology consult. He was seen by Dr Stephens who changed his Diltiazem to Carvedilol. His 2D echo showed moderate mitral regurgitation, akinesis of the apical myocardium, severely reduced LV function with an EF of 25-30%. His pulmonary artery pressure was elevated at 75mm Hg. He was felt to have an ischemic cardiomyopathy. He was also put on low dose of Lisinopril by me on admission. Clinically he has diuresed well with resolution of his CHF and symptoms. Cardiology talked with the patient about a LIFE VEST in view of his cardiomyopathy and low EF but patient is declining that currently. His nuclear stress test done today showed a prominent fixed defect in the anterior/apical area suggestive of an old infarction (c/w patient history of a prior VT). No definite redistribution was demonstrated on the rest images to suggest ischemia myocardial changes. Perfusion is demonstrated along the lateral, interior and septal schultz. His EF was only 14%. He was cleared earlier today by cardiology for discharge if his nuclear scan showed no acute ischemia. Patient will be discharged to followup with his PCP in one week and cardiology in 2 weeks. I told the patient to hold his Lovastatin because of the elevated liver enzymes and to repeat a hepatic panel in 4 weeks along with a repeat CBC. Also repeat a BMP in one week because he is on Lasix. Pt Condition on Discharge: Stable Discharge Disposition: Discharge Home Discharge Instructions DIET: Follow Instructions for: Heart Healthy Diet, Low Sodium Diet Activities you can perform: Regular-No Restrictions Follow up Referrals: Cardiology - 2 Weeks PCP Follow-up with Dr Ritter New Orders: BASIC METABOLIC PROF - 1 Week CBC WITH DIFF - 4 Weeks HEPATIC FUNCTION BLANCAS - 4 Weeks New Medications: Carvedilol (Coreg) 6.25 Mg Tab 6.25 MG PO Q12HR CHF #60 Ref 5 TAB Furosemide (Lasix) 40 Mg Tab 40 MG PO DAILY CHF #30 Ref 5 TAB Lisinopril (Lisinopril) 5 Mg Tab 5 MG PO DAILY HTN;CHF #30 Ref 5 TAB Sulfamethoxazole-Trimethoprim (Bactrim DS) 800-160 Mg Tab 1 TAB PO Q12HR MRSA infection #10 TAB Continued Medications: Aspirin (Aspirin) 81 Mg Chew 81 MG CHEW DAILY Ref 0 TAB Citalopram (Citalopram) 20 Mg Tab 20 MG PO DAILY Control Depression #30 Ref 0 TAB Lamotrigine (Lamictal) 150 Mg Tab 150 MG PO DAILY Control Seizures #60 Ref 0 TAB Trazodone (Trazodone) 100 Mg Tab 100 MG PO HS PRN PAIN SCALE 1 TO 10 #30 Ref 0 TAB Discontinued Medications: Diltiazem ER 12 HR (Diltiazem ER 12 HR) 90 Mg Caper 90 MG PO BID #60 Ref 0 CAP Lovastatin (Lovastatin) 20 Mg Tab 20 MG PO DAILY Cholesterol Management #30 Ref 0 TAB Harsh Sutton MD Nov 21, 2016 15:47
[2016-11-21 16:00] VITALS: BP 103/81; PULSE 68; RESP 18; TEMP 97.8; O2SAT 99
== END 2016-11-21 16:22 | disposition home or self-care (01) | DRG 292 ==
LOC: PHED 21:36 → PHEDA 23:21 → PH3B 11-19 01:35
PROVIDERS: ADMIT Family Medicine; ATTEND Family Medicine
DX: I11.0 Hypertensive heart disease with heart failure (principal); I50.21 Acute systolic (congestive) heart failure; L03.116 Cellulitis of left lower limb; I27.2 Other secondary pulmonary hypertension; L03.115 Cellulitis of right lower limb; E78.5 Hyperlipidemia, unspecified; D64.9 Anemia, unspecified; I25.2 Old myocardial infarction; I25.10 Atherosclerotic heart disease of native coronary artery without angina pectoris; I25.5 Ischemic cardiomyopathy; I34.0 Nonrheumatic mitral (valve) insufficiency; F32.9 Major depressive disorder, single episode, unspecified; K21.9 Gastro-esophageal reflux disease without esophagitis; K44.9 Diaphragmatic hernia without obstruction or gangrene; R79.89 Other specified abnormal findings of blood chemistry; F17.210 Nicotine dependence, cigarettes, uncomplicated; B95.62 Methicillin resistant Staphylococcus aureus infection as the cause of diseases classified elsewhere; Z95.5 Presence of coronary angioplasty implant and graft; Z88.1 Allergy status to other antibiotic agents
CPT/HCPCS: 71010; 71020; 76700; 78452; 80048; 80053; 82550; 82552; 83880; 84484; 85025; 85610; 85730; 87040; 93005; 93017; 93306; 94640; 94664; 96374; 96375; A9502; J1650; J1940; J2785; J2930; J7613

== ENCOUNTER 2017-09-07 07:48 | Day surgery (SDC) | payer OTHER ==
[~2017-09-07] VITALS: Ht 172.7 cm; Wt 79.0 kg
[2017-09-07] VITALS (16 sets, daily range): BP systolic 111–137; BP diastolic 53–88; PULSE 42–60; RESP 17–20; TEMP 97.4–98.4; O2SAT 95–100
[~2017-09-07 07:48] MED LIST changes: -ASPI81 PO; +ASPI81CH CHEW; +BACT800T5 PO; -BYST5TAB2 PO; +CARV6.25 PO; +CITA20TA4 PO; +FURO1TAB60 PO; +LAMO150 PO; +LISI-519 PO; -LORA-474 PO; -PRED5 PO; +TRAZ100T4 PO; -WELL150T PO; -ZIPR1CAP27 PO
[2017-09-07] MEDS ORDERED: TRAZ100T6 PO (08:21)
[2017-09-07] MEDS ORDERED: LACTATED RINGER'S 1000 ML IV PRN (08:30)
[2017-09-07] MEDS ORDERED: NS 1000 ML IV SCH (08:30)
[2017-09-07] MEDS ORDERED: VANCOMYCIN 1000 MG/NS 250 ML IV SCH ×2 (08:30)
[2017-09-07] MEDS ORDERED: METOPROLOL TARTRATE 25 MG TAB PO PRN (08:30)
[2017-09-07] MEDS ORDERED: LORazepam 1 MG TAB SL SCH (08:30)
[2017-09-07] MEDS ORDERED: CHLORHEXIDINE GLUCONATE 2 % 1 PACK (2 CLOTHS) TOPICAL SCH (08:30)
[2017-09-07] MEDS ORDERED: POVIDONE IODINE 5% (ANTISEPSIS KIT) 4 APPLICATIONS EACH NARE PRN (08:30)
[2017-09-07] MEDS ORDERED: MUPIROCIN 2% OINT 1 APPLIC/GM SYR NASAL SCH (08:30)
[2017-09-07] MEDS ORDERED: CHLORHEXIDINE GLUCONATE 2 % 1 PACK (2 CLOTHS) TOPICAL PRN (08:30)
[2017-09-07] MEDS ORDERED: INSULIN HUMAN REGULAR 1,000 UNITS/10 ML VIAL SQ PRN (08:30)
[2017-09-07] MEDS ORDERED: SODIUM CHLORID 0.9% 500 ML IV PRN (08:30)
[2017-09-07] MEDS ORDERED: POVIDONE IODINE 5% (ANTISEPSIS KIT) 4 APPLICATIONS EACH NARE SCH (08:30)
[2017-09-07] MEDS ORDERED: SODIUM CHLORID 0.9% 500 ML INJ 500 ML IV SCH (08:30)
[2017-09-07] MEDS ORDERED: ceFAZolin 2 GM PREMIX 50 ML IV SCH (08:30)
[2017-09-07 08:41] LABS: AUTOMATED NEUTROPHIL # 7.2 TH/MM3 (1.8-7.7); BASOPHIL % 0.4 % (0.0-2.0); EOSINOPHIL # 0.3 TH/MM3 (0-0.4); EOSINOPHIL % 3.2 % (0.0-4.0); HEMATOCRIT 45.6 % (39.0-51.0); HEMOGLOBIN 15.2 GM/DL (13.0-17.0); LYMPH % 12.2 % (9.0-44.0); LYMPHOCYTE # 1.2 TH/MM3 (1.0-4.8); MEAN CELL VOLUME 90.7 FL (80.0-100.0); MEAN CORPUSCULAR HEMOGLOBIN 30.2 PG (27.0-34.0); MEAN CORPUSCULAR HGB CONC 33.3 % (32.0-36.0); MEAN PLATELET VOLUME 7.2 FL (7.0-11.0); MONO % 10.2 % (0.0-8.0); PLATELET COUNT 267 TH/MM3 (150-450); RED BLOOD COUNT 5.03 MIL/MM3 (4.50-5.90); WHITE BLOOD COUNT 9.8 TH/MM3 (4.0-11.0)
[2017-09-07 08:53] LABS: PROTHROMBIN TIME - PATIENT 10.7 SEC (9.8-11.6)
[2017-09-07 08:55] LABS: BICARBONATE 28.5 MEQ/L (21.0-32.0); CALCIUM 8.7 MG/DL (8.5-10.1); CREATININE 1.15 MG/DL (0.60-1.30)
[2017-09-07] MEDS ORDERED: VANCOMYCIN 500 MG VIAL ONE ×2 (10:33→11:52)
[2017-09-07] MEDS ORDERED: LIDOCAINE HCL 2% 50 ML VIAL ONE (10:34)
[2017-09-07] MEDS ORDERED: ISOPROTERENOL HCL 1 MG/5 ML AMP ONE (11:03)
[2017-09-07] MEDS ORDERED: SODIUM CHLOR 0.9% 250 ML INJ 250 ML ONE (11:03)
--- NOTE | 2017-09-07 11:37 | CATHPROC ---
Patient Name: LEOPOLDO CAMACHO Study #: [id number] Initial MD: Ivet Pack Date of : 1960 Study Date: 09/07/2017 Cardiac Catheterization Report 09/07/2017 11:37:15 AM Financial #: [id number] 1 of 8 Patient Name: LEOPOLDO CAMACHO Study #: [id number] Initial MD: Ivet Pack Date of : 1960 Study Date: 09/07/2017 Entire Case Report Patient Information Patient Name LEOPOLDO CAMACHO Date of 1960 Age 57 years Financial # [id number] Gender M AlternateID Lab Number 6 Room Number DC06 Height (in) 68.0 Height (cm) 172.7 BSA 1.92 Weight (lbs) 172.3 Weight (kg) 78.3 Patient Address/Phone Number Home Address [facility] Home Phone Number [phone] [facility] [id number] Study Information Study Number Admission Scheduled Start Study Start [id number] Sep 07 2017 7:48AM 09/07/2017 Sep 07 2017 9:04AM [facility] Electrophysiology Study Admit Source Facility Department Other [facility] - Security Guards Dispatcher Physician and Clinical Staff Initial Ivet Marcos Curing Press Maintainer Brenda Taylor,SEISMOGRAPH SUPERVISOR Other Anesthesia, HANDTOOLS REPAIRER Recorder Laya Cordova BSRN Scrub Maye Colmenares,RT(R) TECH2 Procedures Performed Procedure Cardioversion 09/07/2017 11:37:15 AM Financial #: [id number] 2 of 8 Patient Name: LEOPOLDO CAMACHO Study #: [id number] Initial MD: Ivet Pack Date of : 1960 Study Date: 09/07/2017 Equipment Time Mechanic Marine Engine Description Size Mfg Part Number Used/Scraped [id number] 09:12 [employer] INDUSTRIES PACK, CCL CUSTOM * Used *[id number] 09:12 [employer] PACER WHITTAKER, LIMB * 2530 *[id number] Used [id number] 09:12 Printed Piece MEDICAL BLANKET,WARM AIR CCL * Used *[id number] 09:18 [employer] CATHETER, JSN, QUAD FR 5 Used *[id number] 09:18 [employer] CATHETER, JSN, QUAD FR 5 Used *[id number] 09:18 [employer] CATHETER, JSN, QUAD FR 5 Used *[id number] 611898 09:18 [employer] CATHETER, JSN, QUAD FR 5 Used *[id number] [id number] 09:18 [employer] SHEATH, EPS, FR5 FAST CATH FR 5 Used *[id number] 204450 09:18 [employer] SHEATH, EPS, FR5 FAST CATH FR 5 Used *[id number] 944575 09:18 [employer] SHEATH, EPS, FR5 FAST CATH FR 5 Used *[id number] [id number] 09:18 [employer] SHEATH, EPS, FR6 FAST CATH FR 6 Used *[id number] Insurance Information Insurance Payor Private Health Insurance Third Alliance Party Third Alliance Party Number [facility] - HMO FHCHMO History: Current Medications Medication Dosage/Unit Route Frequency Last Date/Time Taken LISINOPRIL Beta Lou ASA LASIX History: Allergies Allergy Reaction Cipro Vioxx ciprofloxacin Rash lansoprazole rofecoxib 09/07/2017 11:37:15 AM Financial #: [id number] Patient Name: LEOPOLDO CAMACHO Study #: [id number] Initial MD: Ivet Pack Date of : 1960 Study Date: 09/07/2017 History: Risk Factors Family History of Hypertension Dyslipidemia Previous PA Previous Heart Failure Premature CAD Yes Yes Yes Yes Yes Prior PCI Yes History: CV Disease Selection Items Cardiomyopathy Labs Hgb (g/dl) Hct (%) RBC (MIL/MM3) WBC (l/cumm) Platelets (thousands) 11.60-17.00 35.00-51.00 4.00-5.90 4.00-11.00 150.00-450.00 15.2 45.6 5 9.8 267 Glucose (mg/dl) BUN (mg/dl) Creatinine (mg/dl) BUN:Creatinine (1:x) 74.00-106.00 7.00-18.00 0.50-1.30 10.00-20.00 97 14 1.1 12.7 Na (meq/l) K (meq/l) Cl (meq/l) CO2 (mmol/L) Ca (mg/dl) 136.00-145.00 3.50-5.10 98.00-107.00 21.00-32.00 8.50-10.10 141 3.8 105 28.5 8.7 INR (PTT:PT) 0.90-1.10 1 Medication Medication Total Dose (Bolus/Oral) Medication Total Dosage/Unit 1% XYLOCAINE 20 mL Medications (Bolus/Oral) Medication Time Given Dosage/Unit Administered By Reason 1% XYLOCAINE 09/07/2017 11:18:30 AM 20 mL Ivet Pack For pain 20 mL 1% XYLOCAINE given in lab by Ivet Pack in Right Groin via Subcutaneous. Ordered by Sheila Pack. Reason: For pain. 09/07/2017 11:37:15 AM Financial #: [id number] 4 of 8 Patient Name: LEOPOLDO CAMACHO Study #: [id number] Initial MD: Ivet Pack Date of : 1960 Study Date: 09/07/20 17 Medication (Drip) Medication Time Given Dosage/Unit Concentration/Unit Diluent (ml) Solution ANCEF 09/07/2017 11:13:00 AM 2 g 2 g ANCEF given in lab by Anesthesia, HANDTOOLS REPAIRER in Right Antecubital via Peripheral IV. Ordered by Ivet Pack. Reason: As per physicians verbal order. IV Solutions 09/07/2017 10:52:39 AM 0 mL (IV) NaCl .9 IV Solutions given in lab by Anesthesia, HANDTOOLS REPAIRER in Left Forearm via Peripheral IV. Pump/Drip Flow = 50 ml/hr using NaCl .9. Ordered by Ivet Pack. Reason: As per physicians verbal order. IV Solutions 09/07/2017 10:53:10 AM 0 mL (IV) NaCl .9 IV Solutions given in lab by Anesthesia, HANDTOOLS REPAIRER in Right Antecubital via Peripheral IV. Pump/Drip Flow = 50 ml/hr using NaCl .9. Ordered by Ivet Pack. Reason: As per physicians verbal order. VANCOMYCIN DRIP 09/07/2017 11:13:05 AM 1 g 1 g VANCOMYCIN DRIP given in lab by Anesthesia, HANDTOOLS REPAIRER in Right Antecubital via Peripheral IV. Ordered by Ivet Pack. Reason: As per physicians verbal order. Initial Case Assessment Cardiovascular HR NIBP Chest Pain 45 142/81 0 Edema Present Skin color Skin None Normal Warm Dry Neurological State Oriented to time-place- Alert Moves all extremities person Respiration - General Respiration Rate SpO2 (%) (B/min) 20 100 Final Case Assessment Cardiovascular HR NIBP 46 90/52 Edema Present Skin color Skin None Normal Warm Dry Neurological State Comment: Patient sedated. Respiration - General SpO2 (%) 100 09/07/2017 11:37:15 AM Financial #: [id number] 5 of 8 Patient Name: LEOPOLDO CAMACHO Study #: [id number] Initial MD: Ivet Pack Date of : 1960 Study Date: 09/07/2017 Chronological Log Time Study Chronological Log 10:30:28 Patient arrived via Bed. 10:30:31 Patient Name, D.O.B, / Armband Verified By R.N. 10:30:33 Consent signed by the physician and the patient and verified by the Security Guards Dispatcher staff. 10:30:34 Pre-op and post- op instructions given; patient acknowledges understanding of instructions. 10:30:37 Verbal Stimulation=2 Physical Stimulation=2 Airway=2 Respiration=2 TOTAL=10. (0=absent, 1=l imited, 2=present) 10:50:59 Anesthesia at bedside. Assumes care of patient.Mamadou HANDTOOLS REPAIRER 10:51:28 Presedation assessment performed by Security Guards Dispatcher RN. 10:51:40 Patient has been NPO for More than 6Hrs. 10:51:42 Skin Breakdown- none 10:52:05 Patient Warmer Placed on the Table. 10:52:07 Disposable Defibrillator Pads Placed On Patient. 10:52:10 Lesley Prominences Protected 10:52:14 A # 20 IV was noted in the Forearm (left). Grade = ~GRADE~ 10:52:26 A # 20 IV was noted in the Antecubital (right). Grade = ~GRADE~ IV Solutions given in lab by Anesthesia, HANDTOOLS REPAIRER in Left Forearm via Peripheral IV. Pump/Drip Flow = 50 ml/hr using NaCl 10:52:39 .9. Ordered by Ivet Pack. Reason: As per physicians verbal order. IV Solutions given in lab by Anesthesia, HANDTOOLS REPAIRER in Right Antecubital via Peripheral IV. Pump/Drip Flow = 50 ml/hr using 10:53:10 NaCl .9. Ordered by Ivet Pack. Reason: As per physicians verbal order. 10:53:32 History and physical on the chart or being dictated. Assessment: Initial Case, HR=45 BPM, IQXQ=000/81 mmhg, Chest Pain=0, Edema=None, Color=Normal, Skin = Warm, Dry 10:53:34 Neurological: State=Alert, Ox3, CONTRERAS Respiration: Resp=20 B/min, QvS8=613 % 10:54:13 Table restraints applied according to hospital policy 10:54:16 Right groin prepped with 2% chlorhexidine, and draped after a 3 min. waiting time. 10:54:18 Left groin prepped with 2% chlorhexidine, and draped after a 3 min. waiting time. 10:54:24 Left Upper Chest Prepped Times Two. 10:55:17 Reference ECG taken 11:07:00 MD notified ready. 11:09:18 MD responded 2 g ANCEF given in lab by Anesthesia, HANDTOOLS REPAIRER in Right Antecubital via Peripheral IV. Ordered by Ivet Young. Reason: 11:13:00 As per physicians verbal order. 1 g VANCOMYCIN DRIP given in lab by Anesthesia, HANDTOOLS REPAIRER in Right Antecubital via Peripheral IV. Or dered by Sirena, 11:13:05 Ivet. Reason: As per physicians verbal order. 11:15:00 Immediate Presedation assesment performed by physician. Time Out. Correct patient, procedure, procedure equipment, site and side verified with physicia n present. Time 11:18:19 concurred by MD, individual staff and HANDTOOLS REPAIRER. Time Out #2 - Consents verified, patient in correct position, all results are labled and displa yed, safety precautions 11:18:22 taken, antibiotics administered. Time out concurred by MD, individual staff and HANDTOOLS REPAIRER in procedu re 11:18:27 Case Start 09/07/2017 11:37:15 AM Financial #: [id number] 6 of 8 Patient Name: LEOPOLDO CAMACHO Study #: [id number] Initial MD: Ivet Pack Date of : 1960 Study Date: 09/07/2017 20 mL 1% XYLOCAINE given in lab by Ivet Pack in Right Groin via Subcutaneous. Ordered by Ivet Young. 11:18:30 Reason: For pain. 11:18:40 Vascular access was obtained in the Fem Vein (right). 11:18:45 Vascular access was obtained in the Fem Vein (right). 11:18:46 Vascular access was obtained in the Fem Vein (right). 11:18:46 Vascular access was obtained in the Fem Vein (right). 11:18:52 A SHEATH, EPS, FR5 FAST CATH FR 5 was advanced into the Fem Vein (right) using the Percuta neous technique. 11:18:58 A SHEATH, EPS, FR5 FAST CATH FR 5 was advanced into the Fem Vein (right) using the Percuta neous technique. 11:18:58 A SHEATH, EPS, FR5 FAST CATH FR 5 was advanced into the Fem Vein (right) using the Percuta neous technique. 11:19:06 A SHEATH, EPS, FR6 FAST CATH FR 6 was advanced into the Fem Vein (right) using the Percuta neous technique. A CATHETER, JSN, QUAD FR 5 was advanced vis Fem Vein (right) and placed in the HRA. Placement was visually 11:19:12 confirmed under fluoroscopy. A CATHETER, JSN, QUAD FR 5 was advanced vis Fem Vein (right) and placed in the HIS. Placement was visually 11:19:21 confirmed under fluoroscopy. A CATHETER, JSN, QUAD FR 5 was advanced vis Fem Vein (right) and placed in the CS. Placement w as visually 11:19:31 confirmed under fluoroscopy. A CATHETER, JSN, QUAD FR 5 was advanced vis Fem Vein (right) and placed in the RVA. Placement was visually 11:19:40 confirmed under fluoroscopy. 11:19:50 EP study begun. 11:33:23 ECG rhythm of VF noted. Patient cardioverted at 200 joules. Success 11:33:39 EP Procedure was performed. 11:34:27 EP procedure complete. Assessment: Final Case, HR=46 BPM, NIBP=90/52 mmhg, Edema=None, Color=Normal, Skin = Warm, Dry 11:35:10 Neurological: Comment=Patient sedated. Respiration: QhD5=548 % 11:35:55 Case End 11:36:00 NOTE: This patient is undergoing an additional procedure while still in the Cardiac Cath L ab. 11:36:20 No case complications noted. 11:36:22 Cine recording checked. End Study - Contrast Media Used In Study Contrast Total Opened (mL) Total Used (mL) Total Wasted (mL) Unspecified 0 0 0 End Study - Maximum Contrast Load Max Contrast Load (mL) 356.0 09/07/2017 11:37:15 AM Financial #: [id number] 7 of 8 Patient Name: LEOPOLDO CAMACHO Study #: [id number] Initial MD: Ivet Pack Date of : 1960 Study Date: 09/07/2017 End Study - Radiation Exposure Fluoro Time (minutes) 0.6 End Study - Patient Disposition Complications Transferred To Interventional Outcome No Telemetry Bed successful 09/07/2017 11:37:15 AM Financial #: [id number] 8 8
--- NOTE | 2017-09-07 11:37 | CATHPROC ---
Patient Name: LEOPOLDO CAMACHO Study #: [id number] Initial MD: Ivet Pack Date of : 1960 Study Date: 09/07/2017 Cardiac Catheterization Report 09/07/2017 11:37:15 AM Financial #: [id number] 1 of 8 Patient Name: LEOPOLDO CAMACHO Study #: [id number] Initial MD: Ivet Pack Date of : 1960 Study Date: 09/07/2017 Entire Case Report Patient Information Patient Name LEOPOLDO CAMACHO Date of 1960 Age 57 years Financial # [id number] Gender M AlternateID Lab Number 6 Room Number DC06 Height (in) 68.0 Height (cm) 172.7 BSA 1.92 Weight (lbs) 172.3 Weight (kg) 78.3 Patient Address/Phone Number Home Address [facility] Home Phone Number [phone] [facility] [address] Study Information Study Number Admission Scheduled Start Study Start [id number] Sep 07 2017 7:48AM 09/07/2017 Sep 07 2017 9:04AM [address] Service Electrophysiology Study Admit Source Facility Department Other [facility] - Shaft Repairer Physician and Clinical Staff Initial Ivet Marcos Paper Cone Maker Brenda Taylor,TOOL AND DIE REPAIRER Other Anesthesia, DIRECTOR LIFE SCIENCES Recorder Laya Cordova BSRN Scrub Maye Colmenares,RT(R) TECH2 Procedures Performed Procedure Cardioversion 09/07/2017 11:37:15 AM Financial #: [id number] 2 of 8 Patient Name: LEOPOLDO CAMACHO Study #: [id number] Initial MD: Ivet Pack Date of : 1960 Study Date: 09/07/2017 Equipment Time Lining Strap Closer Description Size Mfg Part Number Used/Scraped [id number] 09:12 A la [employer] INDUSTRIES PACK, CCL CUSTOM * Used *[id number] 09:12 A la [employer] PACER WHITTAKER, LIMB * 2530 *[id number] Used [id number] 09:12 [employer] MEDICAL BLANKET,WARM AIR CCL * Used *[id number] 09:18 [employer] MEDICAL CATHETER, JSN, QUAD FR 5 Used *[id number] [id number] 09:18 [employer] MEDICAL CATHETER, JSN, QUAD FR 5 Used *[id number] [id number] 09:18 [employer] MEDICAL CATHETER, JSN, QUAD FR 5 Used *[id number] 874687 09:18 [employer] MEDICAL CATHETER, JSN, QUAD FR 5 Used *[id number] 09:18 [employer] MEDICAL SHEATH, EPS, FR5 FAST CATH FR 5 Used *[id number] 09:18 [employer] MEDICAL SHEATH, EPS, FR5 FAST CATH FR 5 Used *[id number] 09:18 [employer] MEDICAL SHEATH, EPS, FR5 FAST CATH FR 5 Used *[id number] 348800 09:18 [employer] MEDICAL SHEATH, EPS, FR6 FAST CATH FR 6 Used *[id number] Insurance Information Insurance Payor Private Health Insurance Third Republican Third Republican Number [facility] - HMO FHCHMO History: Current Medications Medication Dosage/Unit Route Frequency Last Date/Time Taken LISINOPRIL Beta Lou ASA LASIX History: Allergies Allergy Reaction Cipro Vioxx ciprofloxacin Rash lansoprazole rofecoxib 09/07/2017 11:37:15 AM Financial #: [id number] Patient Name: LEOPOLDO CAMACHO Study #: [id number] Initial MD: Ivet Pack Date of : 1960 Study Date: 09/07/2017 History: Risk Factors Family History of Hypertension Dyslipidemia Previous PR Previous Heart Failure Premature CAD Yes Yes Yes Yes Yes Prior PCI Yes History: CV Disease Selection Items Cardiomyopathy Labs Hgb (g/dl) Hct (%) RBC (MIL/MM3) WBC (l/cumm) Platelets (thousands) 11.60-17.00 35.00-51.00 4.00-5.90 4.00-11.00 150.00-450.00 15.2 45.6 5 9.8 267 Glucose (mg/dl) BUN (mg/dl) Creatinine (mg/dl) BUN:Creatinine (1:x) 74.00-106.00 7.00-18.00 0.50-1.30 10.00-20.00 97 14 1.1 12.7 Na (meq/l) K (meq/l) Cl (meq/l) CO2 (mmol/L) Ca (mg/dl) 136.00-145.00 3.50-5.10 98.00-107.00 21.00-32.00 8.50-10.10 141 3.8 105 28.5 8.7 INR (PTT:PT) 0.90-1.10 1 Medication Medication Total Dose (Bolus/Oral) Medication Total Dosage/Unit 1% XYLOCAINE 20 mL Medications (Bolus/Oral) Medication Time Given Dosage/Unit Administered By Reason 1% XYLOCAINE 09/07/2017 11:18:30 AM 20 mL Ivet Pack For pain 20 mL 1% XYLOCAINE given in lab by Ivet Pack in Right Groin via Subcutaneous. Ordered by Sheila Pack. Reason: For pain. 09/07/2017 11:37:15 AM Financial #: [id number] 4 of 8 Patient Name: LEOPOLDO CAMACHO Study #: [id number] Initial MD: Ivet Pack Date of : 1960 Study Date: 09/07/20 17 Medication (Drip) Medication Time Given Dosage/Unit Concentration/Unit Diluent (ml) Solution ANCEF 09/07/2017 11:13:00 AM 2 g 2 g ANCEF given in lab by Anesthesia, DIRECTOR LIFE SCIENCES in Right Antecubital via Peripheral IV. Ordered by Ivet Pack. Reason: As per physicians verbal order. IV Solutions 09/07/2017 10:52:39 AM 0 mL (IV) NaCl .9 IV Solutions given in lab by Anesthesia, DIRECTOR LIFE SCIENCES in Left Forearm via Peripheral IV. Pump/Drip Flow = 50 ml/hr using NaCl .9. Ordered by Ivet Pack. Reason: As per physicians verbal order. IV Solutions 09/07/2017 10:53:10 AM 0 mL (IV) NaCl .9 IV Solutions given in lab by Anesthesia, DIRECTOR LIFE SCIENCES in Right Antecubital via Peripheral IV. Pump/Drip Flow = 50 ml/hr using NaCl .9. Ordered by Ivet Pack. Reason: As per physicians verbal order. VANCOMYCIN DRIP 09/07/2017 11:13:05 AM 1 g 1 g VANCOMYCIN DRIP given in lab by Anesthesia, DIRECTOR LIFE SCIENCES in Right Antecubital via Peripheral IV. Ordered by Ivet Pack. Reason: As per physicians verbal order. Initial Case Assessment Cardiovascular HR NIBP Chest Pain 45 142/81 0 Edema Present Skin color Skin None Normal Warm Dry Neurological State Oriented to time-place- Alert Moves all extremities person Respiration - General Respiration Rate SpO2 (%) (B/min) 20 100 Final Case Assessment Cardiovascular HR NIBP 46 90/52 Edema Present Skin color Skin None Normal Warm Dry Neurological State Comment: Patient sedated. Respiration - General SpO2 (%) 100 09/07/2017 11:37:15 AM Financial #: [id number] 5 of 8 Patient Name: LEOPOLDO CAMACHO Study #: [id number] Initial MD: Ivet Pack Date of : 1960 Study Date: 09/07/2017 Chronological Log Time Study Chronological Log 10:30:28 Patient arrived via Bed. 10:30:31 Patient Name, D.O.B, / Armband Verified By R.N. 10:30:33 Consent signed by the physician and the patient and verified by the Shaft Repairer staff. 10:30:34 Pre-op and post- op instructions given; patient acknowledges understanding of instructions. 10:30:37 Verbal Stimulation=2 Physical Stimulation=2 Airway=2 Respiration=2 TOTAL=10. (0=absent, 1=l imited, 2=present) 10:50:59 Anesthesia at bedside. Assumes care of patient.Mamadou DIRECTOR LIFE SCIENCES 10:51:28 Presedation assessment performed by Shaft Repairer RN. 10:51:40 Patient has been NPO for More than 6Hrs. 10:51:42 Skin Breakdown- none 10:52:05 Patient Warmer Placed on the Table. 10:52:07 Disposable Defibrillator Pads Placed On Patient. 10:52:10 Lesley Prominences Protected 10:52:14 A # 20 IV was noted in the Forearm (left). Grade = ~GRADE~ 10:52:26 A # 20 IV was noted in the Antecubital (right). Grade = ~GRADE~ IV Solutions given in lab by Anesthesia, DIRECTOR LIFE SCIENCES in Left Forearm via Peripheral IV. Pump/Drip Flow = 50 ml/hr using NaCl 10:52:39 .9. Ordered by Ivet Pack. Reason: As per physicians verbal order. IV Solutions given in lab by Anesthesia, DIRECTOR LIFE SCIENCES in Right Antecubital via Peripheral IV. Pump/Drip Flow = 50 ml/hr using 10:53:10 NaCl .9. Ordered by Ivet Pack. Reason: As per physicians verbal order. 10:53:32 History and physical on the chart or being dictated. Assessment: Initial Case, HR=45 BPM, ULOD=813/81 mmhg, Chest Pain=0, Edema=None, Color=Normal, Skin = Warm, Dry 10:53:34 Neurological: State=Alert, Ox3, CONTRERAS Respiration: Resp=20 B/min, DgX0=050 % 10:54:13 Table restraints applied according to hospital policy 10:54:16 Right groin prepped with 2% chlorhexidine, and draped after a 3 min. waiting time. 10:54:18 Left groin prepped with 2% chlorhexidine, and draped after a 3 min. waiting time. 10:54:24 Left Upper Chest Prepped Times Two. 10:55:17 Reference ECG taken 11:07:00 MD notified ready. 11:09:18 MD responded 2 g ANCEF given in lab by Anesthesia, DIRECTOR LIFE SCIENCES in Right Antecubital via Peripheral IV. Ordered by Ievt Young. Reason: 11:13:00 As per physicians verbal order. 1 g VANCOMYCIN DRIP given in lab by Anesthesia, DIRECTOR LIFE SCIENCES in Right Antecubital via Peripheral IV. Or dered by Sirena, 11:13:05 Ivet. Reason: As per physicians verbal order. 11:15:00 Immediate Presedation assesment performed by physician. Time Out. Correct patient, procedure, procedure equipment, site and side verified with physicia n present. Time 11:18:19 concurred by MD, individual staff and DIRECTOR LIFE SCIENCES. Time Out #2 - Consents verified, patient in correct position, all results are labled and displa yed, safety precautions 11:18:22 taken, antibiotics administered. Time out concurred by MD, individual staff and DIRECTOR LIFE SCIENCES in procedu re 11:18:27 Case Start 09/07/2017 11:37:15 AM Financial #: [id number] 6 of 8 Patient Name: LEOPOLDO CAMACHO Study #: [id number] Initial MD: Ivet Pack Date of : 1960 Study Date: 09/07/2017 20 mL 1% XYLOCAINE given in lab by Ivet Pack in Right Groin via Subcutaneous. Ordered by Ivet Young. 11:18:30 Reason: For pain. 11:18:40 Vascular access was obtained in the Fem Vein (right). 11:18:45 Vascular access was obtained in the Fem Vein (right). 11:18:46 Vascular access was obtained in the Fem Vein (right). 11:18:46 Vascular access was obtained in the Fem Vein (right). 11:18:52 A SHEATH, EPS, FR5 FAST CATH FR 5 was advanced into the Fem Vein (right) using the Percuta neous technique. 11:18:58 A SHEATH, EPS, FR5 FAST CATH FR 5 was advanced into the Fem Vein (right) using the Percuta neous technique. 11:18:58 A SHEATH, EPS, FR5 FAST CATH FR 5 was advanced into the Fem Vein (right) using the Percuta neous technique. 11:19:06 A SHEATH, EPS, FR6 FAST CATH FR 6 was advanced into the Fem Vein (right) using the Percuta neous technique. A CATHETER, JSN, QUAD FR 5 was advanced vis Fem Vein (right) and placed in the HRA. Placement was visually 11:19:12 confirmed under fluoroscopy. A CATHETER, JSN, QUAD FR 5 was advanced vis Fem Vein (right) and placed in the HIS. Placement was visually 11:19:21 confirmed under fluoroscopy. A CATHETER, JSN, QUAD FR 5 was advanced vis Fem Vein (right) and placed in the CS. Placement w as visually 11:19:31 confirmed under fluoroscopy. A CATHETER, JSN, QUAD FR 5 was advanced vis Fem Vein (right) and placed in the RVA. Placement was visually 11:19:40 confirmed under fluoroscopy. 11:19:50 EP study begun. 11:33:23 ECG rhythm of VF noted. Patient cardioverted at 200 joules. Success 11:33:39 EP Procedure was performed. 11:34:27 EP procedure complete. Assessment: Final Case, HR=46 BPM, NIBP=90/52 mmhg, Edema=None, Color=Normal, Skin = Warm, Dry 11:35:10 Neurological: Comment=Patient sedated. Respiration: ZsC7=774 % 11:35:55 Case End 11:36:00 NOTE: This patient is undergoing an additional procedure while still in the Cardiac Cath L ab. 11:36:20 No case complications noted. 11:36:22 Cine recording checked. End Study - Contrast Media Used In Study Contrast Total Opened (mL) Total Used (mL) Total Wasted (mL) Unspecified 0 0 0 End Study - Maximum Contrast Load Max Contrast Load (mL) 356.0 09/07/2017 11:37:15 AM Financial #: [id number] 7 of 8 Patient Name: LEOPOLDO CAMACHO Study #: [id number] Initial MD: Ivet Pack Date of : 1960 Study Date: 09/07/2017 End Study - Radiation Exposure Fluoro Time (minutes) 0.6 End Study - Patient Disposition Complications Transferred To Interventional Outcome No Telemetry Bed successful 09/07/2017 11:37:15 AM Financial #: [id number] 8 8
--- NOTE | 2017-09-07 11:37 | CATHPROC ---
Patient Name: LEOPOLDO CAMACHO Study #: [id number] Initial MD: Ivet Pack Date of : 1960 Study Date: 09/07/2017 Cardiac Catheterization Report 09/07/2017 11:37:15 AM Financial #: [id number] 1 of 8 Patient Name: LEOPOLDO CAMACHO Study #: [id number] Initial MD: Ivet Pack Date of : 1960 Study Date: 09/07/2017 Entire Case Report Patient Information Patient Name LEOPOLDO CAMACHO Date of 1960 Age 57 years Financial # [id number] Gender M AlternateID Lab Number 6 Room Number DC06 Height (in) 68.0 Height (cm) 172.7 BSA 1.92 Weight (lbs) 172.3 Weight (kg) 78.3 Patient Address/Phone Number Home Address [facility] Home Phone Number [address] [place] [address] Study Information Study Number Admission Scheduled Start Study Start [id number] Sep 07 2017 7:48AM 09/07/2017 Sep 07 2017 9:04AM [place] Service Electrophysiology Study Admit Source Facility Department Other [facility] - Software Developer Mid Level Physician and Clinical Staff Initial Ivet Marcos Stage Rigger Brenda Taylor,EDITOR Other Anesthesia, COPYIST Recorder Laya Cordova BSRN Scrub Maye Colmenares,RT(R) TECH2 Procedures Performed Procedure Cardioversion 09/07/2017 11:37:15 AM Financial #: [id number] 2 of 8 Patient Name: LEOPOLDO CAMACHO Study #: [id number] Initial MD: Ivet Pack Date of : 1960 Study Date: 09/07/2017 Equipment Time Steamfitter Apprentice Description Size Mfg Part Number Used/Scraped [id number] 09:12 Mobile Authentication [employer] PACK, CCL CUSTOM * Used *[id number] 09:12 Mobile Authentication PACER WHITTAKER, LIMB * 2530 *[id number] Used [id number] 09:12 bttn MEDICAL BLANKET,WARM AIR CCL * Used *[id number] 809678 09:18 [employer] MEDICAL CATHETER, JSN, QUAD FR 5 Used *[id number] 439725 09:18 [employer] MEDICAL CATHETER, JSN, QUAD FR 5 Used *[id number] 836599 09:18 [employer] MEDICAL CATHETER, JSN, QUAD FR 5 Used *[id number] 979875 09:18 [employer] MEDICAL CATHETER, JSN, QUAD FR 5 Used *[id number] 000715 09:18 [employer] MEDICAL SHEATH, EPS, FR5 FAST CATH FR 5 Used *[id number] 741416 09:18 [employer] MEDICAL SHEATH, EPS, FR5 FAST CATH FR 5 Used *[id number] 687730 09:18 [employer] MEDICAL SHEATH, EPS, FR5 FAST CATH FR 5 Used *[id number] 370204 09:18 [employer] MEDICAL SHEATH, EPS, FR6 FAST CATH FR 6 Used *[id number] Insurance Information Insurance Payor Private Health Insurance Third Libertarian Third Libertarian Number [facility] - HMO FHCHMO History: Current Medications Medication Dosage/Unit Route Frequency Last Date/Time Taken LISINOPRIL Beta Lou ASA LASIX History: Allergies Allergy Reaction Cipro Vioxx ciprofloxacin Rash lansoprazole rofecoxib 09/07/2017 11:37:15 AM Financial #: [id number] Patient Name: LEOPOLDO CAMACHO Study #: [id number] Initial MD: Ivet aPck Date of : 1960 Study Date: 09/07/2017 History: Risk Factors Family History of Hypertension Dyslipidemia Previous SD Previous Heart Failure Premature CAD Yes Yes Yes Yes Yes Prior PCI Yes History: CV Disease Selection Items Cardiomyopathy Labs Hgb (g/dl) Hct (%) RBC (MIL/MM3) WBC (l/cumm) Platelets (thousands) 11.60-17.00 35.00-51.00 4.00-5.90 4.00-11.00 150.00-450.00 15.2 45.6 5 9.8 267 Glucose (mg/dl) BUN (mg/dl) Creatinine (mg/dl) BUN:Creatinine (1:x) 74.00-106.00 7.00-18.00 0.50-1.30 10.00-20.00 97 14 1.1 12.7 Na (meq/l) K (meq/l) Cl (meq/l) CO2 (mmol/L) Ca (mg/dl) 136.00-145.00 3.50-5.10 98.00-107.00 21.00-32.00 8.50-10.10 141 3.8 105 28.5 8.7 INR (PTT:PT) 0.90-1.10 1 Medication Medication Total Dose (Bolus/Oral) Medication Total Dosage/Unit 1% XYLOCAINE 20 mL Medications (Bolus/Oral) Medication Time Given Dosage/Unit Administered By Reason 1% XYLOCAINE 09/07/2017 11:18:30 AM 20 mL Ivet Pack For pain 20 mL 1% XYLOCAINE given in lab by Ivet Pack in Right Groin via Subcutaneous. Ordered by Sheila Pack. Reason: For pain. 09/07/2017 11:37:15 AM Financial #: [id number] 4 of 8 Patient Name: LEOPOLDO CAMACHO Study #: [id number] Initial MD: Ivet Pack Date of : 1960 Study Date: 09/07/20 17 Medication (Drip) Medication Time Given Dosage/Unit Concentration/Unit Diluent (ml) Solution ANCEF 09/07/2017 11:13:00 AM 2 g 2 g ANCEF given in lab by Anesthesia, COPYIST in Right Antecubital via Peripheral IV. Ordered by Ivet Pack. Reason: As per physicians verbal order. IV Solutions 09/07/2017 10:52:39 AM 0 mL (IV) NaCl .9 IV Solutions given in lab by Anesthesia, COPYIST in Left Forearm via Peripheral IV. Pump/Drip Flow = 50 ml/hr using NaCl .9. Ordered by Ivet Pack. Reason: As per physicians verbal order. IV Solutions 09/07/2017 10:53:10 AM 0 mL (IV) NaCl .9 IV Solutions given in lab by Anesthesia, COPYIST in Right Antecubital via Peripheral IV. Pump/Drip Flow = 50 ml/hr using NaCl .9. Ordered by Ivet Pack. Reason: As per physicians verbal order. VANCOMYCIN DRIP 09/07/2017 11:13:05 AM 1 g 1 g VANCOMYCIN DRIP given in lab by Anesthesia, COPYIST in Right Antecubital via Peripheral IV. Ordered by Ivet Pack. Reason: As per physicians verbal order. Initial Case Assessment Cardiovascular HR NIBP Chest Pain 45 142/81 0 Edema Present Skin color Skin None Normal Warm Dry Neurological State Oriented to time-place- Alert Moves all extremities person Respiration - General Respiration Rate SpO2 (%) (B/min) 20 100 Final Case Assessment Cardiovascular HR NIBP 46 90/52 Edema Present Skin color Skin None Normal Warm Dry Neurological State Comment: Patient sedated. Respiration - General SpO2 (%) 100 09/07/2017 11:37:15 AM Financial #: [id number] 5 of 8 Patient Name: LEOPOLDO CAMACHO Study #: [id number] Initial MD: Ivet Pack Date of : 1960 Study Date: 09/07/2017 Chronological Log Time Study Chronological Log 10:30:28 Patient arrived via Bed. 10:30:31 Patient Name, D.O.B, / Armband Verified By R.N. 10:30:33 Consent signed by the physician and the patient and verified by the Software Developer Mid Level staff. 10:30:34 Pre-op and post- op instructions given; patient acknowledges understanding of instructions. 10:30:37 Verbal Stimulation=2 Physical Stimulation=2 Airway=2 Respiration=2 TOTAL=10. (0=absent, 1=l imited, 2=present) 10:50:59 Anesthesia at bedside. Assumes care of patient.Mamadou COPYIST 10:51:28 Presedation assessment performed by Software Developer Mid Level RN. 10:51:40 Patient has been NPO for More than 6Hrs. 10:51:42 Skin Breakdown- none 10:52:05 Patient Warmer Placed on the Table. 10:52:07 Disposable Defibrillator Pads Placed On Patient. 10:52:10 Lesley Prominences Protected 10:52:14 A # 20 IV was noted in the Forearm (left). Grade = ~GRADE~ 10:52:26 A # 20 IV was noted in the Antecubital (right). Grade = ~GRADE~ IV Solutions given in lab by Anesthesia, COPYIST in Left Forearm via Peripheral IV. Pump/Drip Flow = 50 ml/hr using NaCl 10:52:39 .9. Ordered by Ivet Pack. Reason: As per physicians verbal order. IV Solutions given in lab by Anesthesia, COPYIST in Right Antecubital via Peripheral IV. Pump/Drip Flow = 50 ml/hr using 10:53:10 NaCl .9. Ordered by Ivet Pack. Reason: As per physicians verbal order. 10:53:32 History and physical on the chart or being dictated. Assessment: Initial Case, HR=45 BPM, BOCD=490/81 mmhg, Chest Pain=0, Edema=None, Color=Normal, Skin = Warm, Dry 10:53:34 Neurological: State=Alert, Ox3, CONTRERAS Respiration: Resp=20 B/min, LsU1=748 % 10:54:13 Table restraints applied according to hospital policy 10:54:16 Right groin prepped with 2% chlorhexidine, and draped after a 3 min. waiting time. 10:54:18 Left groin prepped with 2% chlorhexidine, and draped after a 3 min. waiting time. 10:54:24 Left Upper Chest Prepped Times Two. 10:55:17 Reference ECG taken 11:07:00 MD notified ready. 11:09:18 MD responded 2 g ANCEF given in lab by Anesthesia, COPYIST in Right Antecubital via Peripheral IV. Ordered by Ivet Young. Reason: 11:13:00 As per physicians verbal order. 1 g VANCOMYCIN DRIP given in lab by Anesthesia, COPYIST in Right Antecubital via Peripheral IV. Or dered by Sirena, 11:13:05 Ivet. Reason: As per physicians verbal order. 11:15:00 Immediate Presedation assesment performed by physician. Time Out. Correct patient, procedure, procedure equipment, site and side verified with physicia n present. Time 11:18:19 concurred by MD, individual staff and COPYIST. Time Out #2 - Consents verified, patient in correct position, all results are labled and displa yed, safety precautions 11:18:22 taken, antibiotics administered. Time out concurred by MD, individual staff and COPYIST in procedu re 11:18:27 Case Start 09/07/2017 11:37:15 AM Financial #: [id number] 6 of 8 Patient Name: LEOPOLDO CAMACHO Study #: [id number] Initial MD: Ivet Pack Date of : 1960 Study Date: 09/07/2017 20 mL 1% XYLOCAINE given in lab by Ivet Pack in Right Groin via Subcutaneous. Ordered by Ivet Young. 11:18:30 Reason: For pain. 11:18:40 Vascular access was obtained in the Fem Vein (right). 11:18:45 Vascular access was obtained in the Fem Vein (right). 11:18:46 Vascular access was obtained in the Fem Vein (right). 11:18:46 Vascular access was obtained in the Fem Vein (right). 11:18:52 A SHEATH, EPS, FR5 FAST CATH FR 5 was advanced into the Fem Vein (right) using the Percuta neous technique. 11:18:58 A SHEATH, EPS, FR5 FAST CATH FR 5 was advanced into the Fem Vein (right) using the Percuta neous technique. 11:18:58 A SHEATH, EPS, FR5 FAST CATH FR 5 was advanced into the Fem Vein (right) using the Percuta neous technique. 11:19:06 A SHEATH, EPS, FR6 FAST CATH FR 6 was advanced into the Fem Vein (right) using the Percuta neous technique. A CATHETER, JSN, QUAD FR 5 was advanced vis Fem Vein (right) and placed in the HRA. Placement was visually 11:19:12 confirmed under fluoroscopy. A CATHETER, JSN, QUAD FR 5 was advanced vis Fem Vein (right) and placed in the HIS. Placement was visually 11:19:21 confirmed under fluoroscopy. A CATHETER, JSN, QUAD FR 5 was advanced vis Fem Vein (right) and placed in the CS. Placement w as visually 11:19:31 confirmed under fluoroscopy. A CATHETER, JSN, QUAD FR 5 was advanced vis Fem Vein (right) and placed in the RVA. Placement was visually 11:19:40 confirmed under fluoroscopy. 11:19:50 EP study begun. 11:33:23 ECG rhythm of VF noted. Patient cardioverted at 200 joules. Success 11:33:39 EP Procedure was performed. 11:34:27 EP procedure complete. Assessment: Final Case, HR=46 BPM, NIBP=90/52 mmhg, Edema=None, Color=Normal, Skin = Warm, Dry 11:35:10 Neurological: Comment=Patient sedated. Respiration: CzI1=000 % 11:35:55 Case End 11:36:00 NOTE: This patient is undergoing an additional procedure while still in the Cardiac Cath L ab. 11:36:20 No case complications noted. 11:36:22 Cine recording checked. End Study - Contrast Media Used In Study Contrast Total Opened (mL) Total Used (mL) Total Wasted (mL) Unspecified 0 0 0 End Study - Maximum Contrast Load Max Contrast Load (mL) 356.0 09/07/2017 11:37:15 AM Financial #: [id number] 7 of 8 Patient Name: LEOPOLDO CAMACHO Study #: [id number] Initial MD: Ivet Pack Date of : 1960 Study Date: 09/07/2017 End Study - Radiation Exposure Fluoro Time (minutes) 0.6 End Study - Patient Disposition Complications Transferred To Interventional Outcome No Telemetry Bed successful 09/07/2017 11:37:15 AM Financial #: [id number] 8 8
--- NOTE | 2017-09-07 12:35 | CATHPROC ---
ResiModel HIS Report Study Information Study Number Admission Scheduled Start Study Start [id number] Sep 07 2017 7:48AM 09/07/2017 Sep 07 2017 11:39AM [place] [facility] Cardiac Pacer/ICD Admit Source Facility Department Other [facility] - Credit Advisor Physician and Clinical Staff Initial Ivet Marcos Elevator Mechanic Brenda Taylor,ANA Other Anesthesia, SANITATION ENGINEER Recorder Laya Cordova BSRHilda Scrub Maye Colmenares,RT(R) TECH2 Procedures Performed Procedure Lead Insertion Equipment Time Dentistry Professor Description Size Mfg Part Number Used/Scraped [employer]/ EP DEFIBRILLATOR, DYNAGEN MINI 12:15 D020 Used PACER ICD VR [employer]/ EP LEAD, ENDOTAK RELIANCE SG 12:32 64CM 0181 Used PACER 64CM (DEFIB) DERMABOND, ADHESIVE SKIN [id number] 11:41 CORDIS/PACER * Used GLUE MINI *[id number] TP-1103 11:41 MEDLINE INDUSTRIES SUTURE, STRIP PLUS 1/2" * Used *[id number] 11:41 MEDLINE PACER WHITTAKER, LIMB * 2530 *[id number] Used [id number] 11:41 [employer] PACER PACK, PACER CUSTOM * Used *[id number] 12:09 [employer] PACER SAFE SHEATH, FR9, 13CM FR 9 CLS-1009 Used 11:57 Needle Sponge Count 1 111 Used 11:58 Needle Sponge Count 2 22 Used 12:20 Needle Sponge Count 2 22 Used 12:20 Needle Sponge Count 20 200 Used 11:57 Needle Sponge Count 20 200 Used 11:57 Needle Sponge Count 3 3 Used 12:20 Needle Sponge Count 3 3 Used SUTURE, 0 ETHIBOND [CT1] (CX21D), 8pk SUTURE, 2-0 VICRYL [CT1] ([id number]) SUTURE, 2-0 VICRYL [CT1] (PCM437U) [id number] 11:41 [employer],WARM AIR CCL * Used *[id number] [facility] PAD, ELECTROSURGICAL 11:41 * [id number] *[id number] Used SURGICAL GROUNDING ORANGE 6556-5172 11:41 [employer] PRATEEK. / * Used *[id number] Equipment Model, Serial, Lot Number and Expiration Data Description Model Number Serial Number Lot Number Expiration Date DEFIBRILLATOR, DYNAGEN MINI D020 [id number] 06-05-2019 ICD VR LEAD, ENDOTAK RELIANCE SG 0293 64CM [id number] 08-24-2018 64CM (DEFIB) History: Current Medications Medication Dosage/Unit Route Frequency Last Date/Time Taken LISINOPRIL Beta Lou ASA LASIX History: Allergies Allergy Reaction Cipro Vioxx ciprofloxacin Rash lansoprazole rofecoxib History: Risk Factors Family History of Hypertension Dyslipidemia Previous [place] Previous Heart Failure Premature CAD Yes Yes Yes Yes Yes Prior PCI Yes History: CV Disease Selection Items Cardiomyopathy Medication Medication Total Dose (Bolus/Oral) Medication Total Dosage/Unit 2% XYLOCAINE 50 mL Medications (Bolus/Oral) Medication Time Given Dosage/Unit Administered By Reason 2% XYLOCAINE 09/07/2017 12:04:40 PM 50 mL Ivet Pack 50 mL 2% XYLOCAINE given in lab by Ivet Pack in Left shoulder via Subcutaneous. left upper chest Final Case Assessment Cardiovascular HR Rhythm NIBP Chest Pain 48 SR 100/83 0 Edema Present Skin color Skin None Normal Warm Dry Circulatory - Right Pulses Dorsalis Pedis 1 Scale (0,1,2,3,4,d) Circulatory - Left Pulses Dorsalis Pedis 1 Scale (0,1,2,3,4,d) Neurological State Oriented to time-place- Alert Moves all extremities person Respiration - General Respiration Rate SpO2 (%) O2 (lpm) (B/min) 18 100 2 Chronological Log Time Study Chronological Log 11:42:00 Initial procedure has been completed. Beginning additional procedure. 11:42:03 Anesthesia remains at bedside Mamadou BRYANT 11:42:20 Presedation re-assessment performed by Credit Advisor RN. 11:42:29 2% CHLORHEXIDINE GLUCONATE WASH AND NASAL SWIPE DONE PRIOR TO PROCEDURE. 11:42:41 Bovie ground pad applied to: right thigh First Sponge And Instrument Count Done by Maye Colmenares, RT(R) TECH2. 11:43:00 Hypo's: 3, Sponges: 20, Bovie/scratch: 2 Sutures: 10, Blades: 1, Instruments: 26, Syveck Patches: 0 VERIFIED BY PELON Ng 11:43:01 NOTE: This patient is undergoing an additional procedure while still in the Cardiac Cath La b. 11:43:16 Left Upper Chest Prepped Times Two. 11:43:30 Ancef 2 gms IV, and Vancomycin 1 gm IV given at 1113. First Sponge And Instrument Count Done by Laya Cordova BSRN. 11:57:04 Hypo's: 3, Sponges: 20, Bovie/scratch: 2 Sutures: 10, Blades: 1, Instruments: 26, Syveck Patches: 0 12:02:12 Reference ECG taken 12:03:46 Case Start 12:04:40 50 mL 2% XYLOCAINE given in lab by Ivet Pack in Left shoulder via Subcutaneous. left up per chest 12::25 Vascular access was obtained in the Subclav. Vein (Lft. 12:07:39 Surgical Incision Made. 12:09:24 A pocket was created at the L Upper Chest. 12:09:30 A SAFE SHEATH, FR9, 13CM FR 9 was advanced into the Subclav. Vein (Lft using the Modified Seldinger technique. 12:13:08 A implantable was inserted and positioned in the RV. 12:15:39 Lead placement verified under fluoroscopy 12:15:40 The RV lead impedance and threshold being tested. 12:15:41 The RV lead was sutured to the fascia. 12:15:43 Pocket flushed with antibiotic solution 12:15:46 A DEFIBRILLATOR, DYNAGEN MINI ICD VR was connected and placed in the pocket. 12:17:24 A TWO Joul DFT was performed. 12:17:34 The DFT was Success at 21 Joules, 55 Ohms lead impedance and 4.1 SEC charge time. First Sponge And Instrument Count Done by Maye Colmenares, RT(R) TECH2. 12:22:16 Hypo's: 3, Sponges: 20, Bovie/scratch: 2 Sutures: 10, Blades: 1, Instruments: 26, Syveck Patches: 0 VERIFIED BY PELON F 12:23:22 The pocket was closed. 12:23:29 Implant Procedure was performed. 12:23:35 A ICD Implant . (Single) 12:23:53 Case End 12:23:54 Bedside Report will be given. 12:25:20 Steri-strips and a sterile dressing applied to site. Assessment: Final Case, HR=48 BPM, Rhythm=SR, DUTR=460/83 mmhg, Chest Pain=0, Edema=None, [place] r=Normal, Skin = Warm, Dry Right Pulses: Jaswant Ped=1 12:25:24 Left Pulses: Jaswant Ped=1 Neurological: State=Alert, Ox3, CONTRERAS Respiration: Resp=18 B/min, XoZ2=520 %, O2=2 lpm 12:26:07 Catheter(s) removed without difficulty 12:26:34 No case complications noted. 12:26:35 Case complication noted. 12:26:37 Bedside Report will be given. 12:26:38 Implantable Device card placed in patient's chart. 12:26:39 DOCU called. Spoke to ANGY 12:28:51 Defibrillator and ground pads removed. Skin intact. 12:29:16 Sheath removed; pressure applied to access site. BY [facility] End Study - Contrast Media Used In Study Contrast Total Opened (mL) Total Used (mL) Total Wasted (mL) Unspecified 0 0 0 End Study - Radiation Exposure Fluoro Time (minutes) 1.1 End Study - Patient Disposition Complications Transferred To Interventional Outcome No Telemetry Bed successful
--- NOTE | 2017-09-07 12:35 | CATHPROC ---
TopFloor HIS Report Study Information Study Number Admission Scheduled Start Study Start [id number] Sep 07 2017 7:48AM 09/07/2017 Sep 07 2017 11:39AM [place] Service Cardiac Pacer/ICD Admit Source Facility Department Other [facility] - Granite Polisher Physician and Clinical Staff Initial Ivet Marcos Clinical Program Consultant Brenda Taylor,ANA Other Anesthesia, STUDENT TEACHING COORDINATOR Recorder Laya Cordova BSRHilda Scrub Maye Colmenares,RT(R) TECH2 Procedures Performed Procedure Lead Insertion Equipment Time Supply Teacher Description Size Mfg Part Number Used/Scraped [employer]/ EP DEFIBRILLATOR, DYNAGEN MINI 12:15 D020 Used PACER ICD VR [employer]/ EP LEAD, ENDOTAK RELIANCE SG 12:32 64CM 0181 Used PACER 64CM (DEFIB) DERMABOND, ADHESIVE SKIN DHVM12 11:41 CORDIS/PACER * Used GLUE MINI *[id number] TP-1103 11:41 MEDLINE IND[employer] SUTURE, STRIP PLUS 1/2" * Used *[id number] 11:41 MEDLINE PACER WHITTAKER, LIMB * 2530 *[id number] Used [id number] 11:41 [employer] PACER PACK, PACER CUSTOM * Used *[id number] 12:09 Your Office Agent PACER SAFE SHEATH, FR9, 13CM FR 9 CLS-1009 Used 11:57 Needle Sponge Count 1 111 Used 11:58 Needle Sponge Count 2 22 Used 12:20 Needle Sponge Count 2 22 Used 12:20 Needle Sponge Count 20 200 Used 11:57 Needle Sponge Count 20 200 Used 11:57 Needle Sponge Count 3 3 Used 12:20 Needle Sponge Count 3 3 Used SUTURE, 0 ETHIBOND [CT1] (CX21D), 8pk SUTURE, 2-0 VICRYL [CT1] (TCU024E) SUTURE, 2-0 VICRYL [CT1] ([id number]) [id number] 11:41 [employer],WARM AIR CCL * Used *[id number] [facility] PAD, ELECTROSURGICAL 11:41 * E7507 *[id number] Used SURGICAL GROUNDING ORANGE 9127-0335 11:41 [employer] PR[employer]EK. / * Used *[id number] Equipment Model, Serial, Lot Number and Expiration Data Description Model Number Serial Number Lot Number Expiration Date DEFIBRILLATOR, DYNAGEN MINI D020 [id number] 06-05-2019 ICD VR LEAD, ENDOTAK RELIANCE SG 0293 64CM [id number] 08-24-2018 64CM (DEFIB) History: Current Medications Medication Dosage/Unit Route Frequency Last Date/Time Taken LISINOPRIL Beta Lou ASA LASIX History: Allergies Allergy Reaction Cipro Vioxx ciprofloxacin Rash lansoprazole rofecoxib History: Risk Factors Family History of Hypertension Dyslipidemia Previous [place] Previous Heart Failure Premature CAD Yes Yes Yes Yes Yes Prior PCI Yes History: CV Disease Selection Items Cardiomyopathy Medication Medication Total Dose (Bolus/Oral) Medication Total Dosage/Unit 2% XYLOCAINE 50 mL Medications (Bolus/Oral) Medication Time Given Dosage/Unit Administered By Reason 2% XYLOCAINE 09/07/2017 12:04:40 PM 50 mL Ivet Pack 50 mL 2% XYLOCAINE given in lab by Ivet Pack in Left shoulder via Subcutaneous. left upper chest Final Case Assessment Cardiovascular HR Rhythm NIBP Chest Pain 48 SR 100/83 0 Edema Present Skin color Skin None Normal Warm Dry Circulatory - Right Pulses Dorsalis Pedis 1 Scale (0,1,2,3,4,d) Circulatory - Left Pulses Dorsalis Pedis 1 Scale (0,1,2,3,4,d) Neurological State Oriented to time-place- Alert Moves all extremities person Respiration - General Respiration Rate SpO2 (%) O2 (lpm) (B/min) 18 100 2 Chronological Log Time Study Chronological Log 11:42:00 Initial procedure has been completed. Beginning additional procedure. 11:42:03 Anesthesia remains at bedside Mamadou BRYANT 11:42:20 Presedation re-assessment performed by Granite Polisher RN. 11:42:29 2% CHLORHEXIDINE GLUCONATE WASH AND NASAL SWIPE DONE PRIOR TO PROCEDURE. 11:42:41 Bovie ground pad applied to: right thigh First Sponge And Instrument Count Done by Maye Colmenares, RT(R) TECH2. 11:43:00 Hypo's: 3, Sponges: 20, Bovie/scratch: 2 Sutures: 10, Blades: 1, Instruments: 26, Syveck Patches: 0 VERIFIED BY PELON Ng 11:43:01 NOTE: This patient is undergoing an additional procedure while still in the Cardiac Cath La b. 11:43:16 Left Upper Chest Prepped Times Two. 11:43:30 Ancef 2 gms IV, and Vancomycin 1 gm IV given at 1113. First Sponge And Instrument Count Done by Laya Cordova BSRN. 11:57:04 Hypo's: 3, Sponges: 20, Bovie/scratch: 2 Sutures: 10, Blades: 1, Instruments: 26, Syveck Patches: 0 12:02:12 Reference ECG taken 12:03:46 Case Start 12:04:40 50 mL 2% XYLOCAINE given in lab by Ivet Pack in Left shoulder via Subcutaneous. left up per chest 12::25 Vascular access was obtained in the Subclav. Vein (Lft. 12:07:39 Surgical Incision Made. 12:09:24 A pocket was created at the L Upper Chest. 12:09:30 A SAFE SHEATH, FR9, 13CM FR 9 was advanced into the Subclav. Vein (Lft using the Modified Seldinger technique. 12:13:08 A implantable was inserted and positioned in the RV. 12:15:39 Lead placement verified under fluoroscopy 12:15:40 The RV lead impedance and threshold being tested. 12:15:41 The RV lead was sutured to the fascia. 12:15:43 Pocket flushed with antibiotic solution 12:15:46 A DEFIBRILLATOR, DYNAGEN MINI ICD VR was connected and placed in the pocket. 12:17:24 A TWO Joul DFT was performed. 12:17:34 The DFT was Success at 21 Joules, 55 Ohms lead impedance and 4.1 SEC charge time. First Sponge And Instrument Count Done by Maye Colmenares, RT(R) TECH2. 12:22:16 Hypo's: 3, Sponges: 20, Bovie/scratch: 2 Sutures: 10, Blades: 1, Instruments: 26, Syveck Patches: 0 VERIFIED BY PELON F 12:23:22 The pocket was closed. 12:23:29 Implant Procedure was performed. 12:23:35 A ICD Implant . (Single) 12:23:53 Case End 12:23:54 Bedside Report will be given. 12:25:20 Steri-strips and a sterile dressing applied to site. Assessment: Final Case, HR=48 BPM, Rhythm=SR, AHHS=256/83 mmhg, Chest Pain=0, Edema=None, [place] r=Normal, Skin = Warm, Dry Right Pulses: Jaswant Ped=1 12:25:24 Left Pulses: Jaswant Ped=1 Neurological: State=Alert, Ox3, CONTRERAS Respiration: Resp=18 B/min, FqA4=932 %, O2=2 lpm 12:26:07 Catheter(s) removed without difficulty 12:26:34 No case complications noted. 12:26:35 Case complication noted. 12:26:37 Bedside Report will be given. 12:26:38 Implantable Device card placed in patient's chart. 12:26:39 DOCU called. Spoke to ANGY 12:28:51 Defibrillator and ground pads removed. Skin intact. 12:29:16 Sheath removed; pressure applied to access site. BY [facility] End Study - Contrast Media Used In Study Contrast Total Opened (mL) Total Used (mL) Total Wasted (mL) Unspecified 0 0 0 End Study - Radiation Exposure Fluoro Time (minutes) 1.1 End Study - Patient Disposition Complications Transferred To Interventional Outcome No Telemetry Bed successful
--- NOTE | 2017-09-07 12:35 | CATHPROC ---
Seeder HIS Report Study Information Study Number Admission Scheduled Start Study Start [id number] Sep 07 2017 7:48AM 09/07/2017 Sep 07 2017 11:39AM [place] Service Cardiac Pacer/ICD Admit Source Facility Department Other [facility] - Medical Office Administrator Physician and Clinical Staff Initial Ivet Marcos [employer] Specialties Cook Brenda Taylor,ANA Other Anesthesia, COIL TIER Recorder Laya Cordova BSRHilda Scrub Maye Colmenares,RT(R) TECH2 Procedures Performed Procedure Lead Insertion Equipment Time Manager Cosmetics Description Size Mfg Part Number Used/Scraped [employer]/ EP DEFIBRILLATOR, DYNAGEN MINI 12:15 D020 Used PACER ICD VR [employer]/ EP LEAD, ENDOTAK RELIANCE SG 12:32 64CM 0181 Used PACER 64CM (DEFIB) DERMABOND, ADHESIVE SKIN DHVM12 11:41 CORDIS/PACER * Used GLUE MINI *[id number] TP-1103 11:41 MEDLINE IND[employer]RIES SUTURE, STRIP PLUS 1/2" * Used *[id number] 11:41 MEDLINE PACER WHITTAKER, LIMB * 2530 *[id number] Used [id number] 11:41 [employer] PACER PACK, PACER CUSTOM * Used *[id number] 12:09 [employer]ry [employer] PACER SAFE SHEATH, FR9, 13CM FR 9 CLS-1009 Used 11:57 Needle Sponge Count 1 111 Used 11:58 Needle Sponge Count 2 22 Used 12:20 Needle Sponge Count 2 22 Used 12:20 Needle Sponge Count 20 200 Used 11:57 Needle Sponge Count 20 200 Used 11:57 Needle Sponge Count 3 3 Used 12:20 Needle Sponge Count 3 3 Used SUTURE, 0 ETHIBOND [CT1] (CX21D), 8pk SUTURE, 2-0 VICRYL [CT1] (HJU299D) SUTURE, 2-0 VICRYL [CT1] (ZNH453J) [id number] 11:41 [employer],WARM AIR CCL * Used *[id number] [facility] PAD, ELECTROSURGICAL 11:41 * E7507 *[id number] Used SURGICAL GROUNDING ORANGE 7155-8553 11:41 [employer]EK. / * Used *[id number] Equipment Model, Serial, Lot Number and Expiration Data Description Model Number Serial Number Lot Number Expiration Date DEFIBRILLATOR, DYNAGEN MINI D020 [id number] 06-05-2019 ICD VR LEAD, ENDOTAK RELIANCE SG 0293 64CM [id number] 08-24-2018 64CM (DEFIB) History: Current Medications Medication Dosage/Unit Route Frequency Last Date/Time Taken LISINOPRIL Beta Lou ASA LASIX History: Allergies Allergy Reaction Cipro Vioxx ciprofloxacin Rash lansoprazole rofecoxib History: Risk Factors Family History of Hypertension Dyslipidemia Previous CT Previous Heart Failure Premature CAD Yes Yes Yes Yes Yes Prior PCI Yes History: CV Disease Selection Items Cardiomyopathy Medication Medication Total Dose (Bolus/Oral) Medication Total Dosage/Unit 2% XYLOCAINE 50 mL Medications (Bolus/Oral) Medication Time Given Dosage/Unit Administered By Reason 2% XYLOCAINE 09/07/2017 12:04:40 PM 50 mL Ivet Pack 50 mL 2% XYLOCAINE given in lab by Ivet Pack in Left shoulder via Subcutaneous. left upper chest Final Case Assessment Cardiovascular HR Rhythm NIBP Chest Pain 48 SR 100/83 0 Edema Present Skin color Skin None Normal Warm Dry Circulatory - Right Pulses Dorsalis Pedis 1 Scale (0,1,2,3,4,d) Circulatory - Left Pulses Dorsalis Pedis 1 Scale (0,1,2,3,4,d) Neurological State Oriented to time-place- Alert Moves all extremities person Respiration - General Respiration Rate SpO2 (%) O2 (lpm) (B/min) 18 100 2 Chronological Log Time Study Chronological Log 11:42:00 Initial procedure has been completed. Beginning additional procedure. 11:42:03 Anesthesia remains at bedside Mamadou BRYANT 11:42:20 Presedation re-assessment performed by Medical Office Administrator RN. 11:42:29 2% CHLORHEXIDINE GLUCONATE WASH AND NASAL SWIPE DONE PRIOR TO PROCEDURE. 11:42:41 Bovie ground pad applied to: right thigh First Sponge And Instrument Count Done by Maye Colmenares, RT(R) TECH2. 11:43:00 Hypo's: 3, Sponges: 20, Bovie/scratch: 2 Sutures: 10, Blades: 1, Instruments: 26, Syveck Patches: 0 VERIFIED BY PELON Ng 11:43:01 NOTE: This patient is undergoing an additional procedure while still in the Cardiac Cath La b. 11:43:16 Left Upper Chest Prepped Times Two. 11:43:30 Ancef 2 gms IV, and Vancomycin 1 gm IV given at 1113. First Sponge And Instrument Count Done by Laya Cordova BSRN. 11:57:04 Hypo's: 3, Sponges: 20, Bovie/scratch: 2 Sutures: 10, Blades: 1, Instruments: 26, Syveck Patches: 0 12:02:12 Reference ECG taken 12:03:46 Case Start 12:04:40 50 mL 2% XYLOCAINE given in lab by Ivet Pack in Left shoulder via Subcutaneous. left up per chest 12::25 Vascular access was obtained in the Subclav. Vein (Lft. 12:07:39 Surgical Incision Made. 12:09:24 A pocket was created at the L Upper Chest. 12:09:30 A SAFE SHEATH, FR9, 13CM FR 9 was advanced into the Subclav. Vein (Lft using the Modified Seldinger technique. 12:13:08 A implantable was inserted and positioned in the RV. 12:15:39 Lead placement verified under fluoroscopy 12:15:40 The RV lead impedance and threshold being tested. 12:15:41 The RV lead was sutured to the fascia. 12:15:43 Pocket flushed with antibiotic solution 12:15:46 A DEFIBRILLATOR, DYNAGEN MINI ICD VR was connected and placed in the pocket. 12:17:24 A TWO Joul DFT was performed. 12:17:34 The DFT was Success at 21 Joules, 55 Ohms lead impedance and 4.1 SEC charge time. First Sponge And Instrument Count Done by Maye Colmenares, RT(R) TECH2. 12:22:16 Hypo's: 3, Sponges: 20, Bovie/scratch: 2 Sutures: 10, Blades: 1, Instruments: 26, Syveck Patches: 0 VERIFIED BY PELON F 12:23:22 The pocket was closed. 12:23:29 Implant Procedure was performed. 12:23:35 A ICD Implant . (Single) 12:23:53 Case End 12:23:54 Bedside Report will be given. 12:25:20 Steri-strips and a sterile dressing applied to site. Assessment: Final Case, HR=48 BPM, Rhythm=SR, KJHQ=678/83 mmhg, Chest Pain=0, Edema=None, [place] r=Normal, Skin = Warm, Dry Right Pulses: Jaswant Ped=1 12:25:24 Left Pulses: Jaswant Ped=1 Neurological: State=Alert, Ox3, CONTRERAS Respiration: Resp=18 B/min, LoV5=186 %, O2=2 lpm 12:26:07 Catheter(s) removed without difficulty 12:26:34 No case complications noted. 12:26:35 Case complication noted. 12:26:37 Bedside Report will be given. 12:26:38 Implantable Device card placed in patient's chart. 12:26:39 DOCU called. Spoke to ANGY 12:28:51 Defibrillator and ground pads removed. Skin intact. 12:29:16 Sheath removed; pressure applied to access site. BY [facility] End Study - Contrast Media Used In Study Contrast Total Opened (mL) Total Used (mL) Total Wasted (mL) Unspecified 0 0 0 End Study - Radiation Exposure Fluoro Time (minutes) 1.1 End Study - Patient Disposition Complications Transferred To Interventional Outcome No Telemetry Bed successful
[2017-09-07] MEDS ORDERED: DO NOT ADM ANY ANTICOAGULANT DRUGS PRN (12:45)
--- NOTE | 2017-09-07 13:53 | PD.CARD ---
SINGLE CHAMBER DEFIB IMPLANT PROCEDURE DATE: Sep 07, 2017 NYHA Classification: Class II (Mild) Prevention: Secondary Single Chamber Defib Implant PROCEDURE: Single chamber defibrillator implantation and device testing. INDICATIONS: Mr. Clarke is a 57 -year-old male with hx of ischemic cardiomyopathy, congestive heart failure, ejection fraction 25% who undergo defibrillator implantation for sudden prevention. The risks, the nature and the benefit of the procedure are clearly stated to him . Risks include pneumothorax, cardiac perforation, stroke and even . He understood and agreed to proceed. PROCEDURE: As written, informed consent was obtained, the patient was brought to the EP Lab where he was prepped and draped in the sterile fashion. Conscious sedation was initiated and maintained throughout the procedure by anesthesiologist. Once sedation was verified, the left infraclavicular area was anesthetized with 2% Xylocaine. Using modified Seldinger technique, the left subclavian vein was cannulated on one occasion and one guide wire was advanced. Then, using #11 blade scalpel, a 3-cm incision was made two fingerbreadths below left clavicle. This incision was then taken down to the deep fascial layer using Bovie cautery and blunt dissection. Into the inferomedial direction, a device pocket was dissected, then the wire was dissected into the pocket. A 2-0 Vicryl suture was placed around the wires to prevent bleeding. At this point, over the wire, the 9- Greek dilator and introducer was advanced. As dilator and wire were removed, an active fixation right ventricular pacing, sensing and defibrillatory lead was advanced. After adequate pacing and sensing thresholds were obtained, the lead was secured in the pocket with #2 Ethibond suture. At that point, the pocket was copiously irrigated with antibiotic solution. The leads were connected to the generator and placed into the pocket. I did proceed with NIPS. Initial induction consisted of T-wave shock which induced ventricular fibrillation which was adequately detected and treated by the ICD generator, delivering a 21-joule defibrillatory shock converting the patient back into sinus rhythm. Shocking impedance was 62 ohms, charge time 4.1 seconds. At that point NIPS was complete. I did proceed with wound closure. The deep fascial layer was approximated with 2-0 Vicryl suture in a continuous fashion. The subcutaneous layer was approximated with 2-0 Vicryl suture in a continuous fashion. The subcuticular layer was approximated with 2-0 Vicryl suture in a continuous fashion. Dermabond adhesive was applied to the wound, followed by a sterile pressure dressing. There was no complication. The patient tolerated procedure. Blood loss minimal. 1. Implanted Hardware: The implanted defibrillator generator is a [employer], model number D020, serial number [id number]. The right ventricular pacing, sensing and defibrillatory lead is a [employer] model number 0293 , serial number [id number]. 2. Thresholds: The right ventricular pacing threshold in the bipolar mode was 0.9volts at 0.4 milliseconds, lead impedance 556 ohms and R-wave at 7.0 mV. The right ventricular defibrillatory threshold less than 21 joules shocking, impedance 62 ohms, charge time 4.1 seconds. 3. Settings: The device set in VVI 40 defibrillatory portion for two zones, one zone for ventricular tachycardia between 170 and 250 beats per minute. Initial therapy consists of one burst of ATP, one ramp, 81%, 10 pulses pulse, 10ms millisecond decremental, followed by 21, then 31 and all subsequent shocks at 41 joules defibrillatory shock, the second zone for ventricular fibrillation above 250 beats per minute, first therapy at 31 and all subsequent shocks at 41 joules defibrillatory shock. CONCLUSIONS: Successful defibrillator implantation and device testing. COMMENT AND RECOMMENDATIONS: The patient will be transferred to the telemetry unit, will be observed and when stable can be discharged home. Ivet Pack MD Sep 07, 2017 13:53
--- NOTE | 2017-09-07 13:57 | PD.CARD ---
ELECTROPHYSIOLOGY STUDY 2 PROCEDURE DATE: Sep 07, 2017 NYHA Classification: Class II (Mild) Prevention: Secondary Electrophysiology Study II PROCEDURE Electrophysiology study, coronary sinus cannulation. HISTORY Mr. Clarke is a 57 -year-old male with hx of congestive heart failure, ischemic cardiomyopathy, ejection fraction 25%%, referred for electrophysiology study and defibrillator implantation for sudden prevention. The risks, the nature and the benefit of the procedure are clearly stated to him . Risks include pneumothorax, cardiac perforation, stroke and even . He understood and agreed to proceed. PROCEDURE NOTE After written informed consent was obtained, the patient was brought to the EP lab where he was prepped and draped in the usual sterile fashion. Conscious sedation was initiated and maintained throughout the procedure by anesthesiologist. Once sedation was verified, the right inguinal area was anesthetized with 2% Xylocaine. Using modified Seldinger technique, the right femoral vein was cannulated on four occasions and four guidewires were advanced. Then, over the wires three 5 [place] and one 6 serbian hemaquets were advanced. Then, under fluoroscopic guidance through the 5 [place] Hemaquet four 5 [place] Linda curved quadripolar electrophysiology catheters were advanced and positioned along the His, upper right atrium , right ventricular apex and coronary sinus. The patient was in sinus rhythm Atria pacing protocol was performed . No tachyarrhythmia was performed. Ventricular pacing protocol was performed. Ventricular pacing protocol, ventricular tachycardia was induced. Patient was cardioverted by an external 200 joules that converted him back into sinus rhythm. At that point, procedure was complete. All catheters and Hemaquet were removed. The patient will be kept on the table and a single chamber defibrillator will be implanted for sudden prevention. No incident reported. The patient tolerated the procedure. Blood loss minimal. IMPRESSION 1. Electrocardiogram: At baseline the patient was in Sinus Rhythm. Post- procedure electrocardiogram was unchanged. 2. Basic Interval: The basic cycle length was around 1290 milliseconds. AH was 80 ms and H-V was around 44 milliseconds. 3. Atrial pacing protocol: No tachyarrhythmia was induced 4. Ventricular Pacing Protocol: ventricular tachyarrhythmia was induced. CONCLUSIONS Ventricular tachyarrhythmia COMMENT AND RECOMMENDATION The patient will be kept on the table and single chamber defibrillator will be implanted for sudden secondary prevention. Ivet Pack MD Sep 07, 2017 13:57
[2017-09-07] MEDS ORDERED: METOCLOPRAMIDE HCL 10 MG/2 ML VIAL IV PUSH PRN (14:00)
[2017-09-07] MEDS ORDERED: ONDANSETRON HCL 4 MG/2 ML VIAL IV PUSH PRN ×2 (14:00)
[2017-09-07] MEDS ORDERED: SODIUM CHLOR 0.9% 250 ML INJ 250 ML IV PRN (14:00)
[2017-09-07] MEDS ORDERED: oxyCODONE/ACETAMINOPHEN 5 MG/325 MG TAB PO PRN ×2 (15:00)
[2017-09-07] MEDS ORDERED: SODIUM CHLORIDE 0.9% FLUSH 10 ML FLUSH IV FLUSH PRN (15:00)
[2017-09-07] MEDS ORDERED: BACITRACIN OINT 0.9 GM PKT TOP ONE (15:00)
[2017-09-07] MEDS ORDERED: LORazepam 2 MG/ML VIAL IV PUSH PRN (15:00)
--- NOTE | 2017-09-07 15:05 | RADRPT ---
EXAM DATE/TIME: 09/07/2017 14:14 [facility] COMPARISON: CHEST SINGLE AP, November 18, 2016, 22:03. INDICATIONS : S/p icd MEDICAL HISTORY : None. SURGICAL HISTORY : None. ENCOUNTER: Initial ACUITY: 1 day PAIN SCORE: 3/10 LOCATION: Bilateral chest FINDINGS: The cardiac silhouette is enlarged in transverse diameter. The lungs are free of acute parenchymal op acity. No effusions are identified. A defibrillator device is in place via a left sided approach. CONCLUSION: 1. There is no evidence of pneumothorax. Reyes Knowles MD on September 07, 2017 at 14:58 Board Certified Radiologist. This report was verified electronically.
[2017-09-07] MEDS: ACETAMINOPHEN/HYDROcodone 325 MG/10 MG TAB PO PRN ×2 (15:24→19:42)
[2017-09-07] MEDS ORDERED: ATROPINE SULFATE 1 MG/ML VIAL IV PUSH PRN (16:00)
[2017-09-07] MEDS ORDERED: MAGNESIUM HYDROXIDE SUSP 30 ML CUP PO PRN (16:00)
[2017-09-07] MEDS ORDERED: LIDOCAINE HCL 1% 50 ML VIAL INFIL PRN (16:00)
[2017-09-07] MEDS: ceFAZolin 2 GM PREMIX 50 ML IV SCH (19:42)
[2017-09-07] MEDS: CARVEDILOL 6.25 MG TAB PO SCH (19:42)
[2017-09-07] MEDS ORDERED: traZODone HCL 100 MG TAB PO SCH (21:00)
[2017-09-07] MEDS ORDERED: SODIUM CHLORIDE 0.9% FLUSH 10 ML FLUSH IV FLUSH SCH (21:00)
[2017-09-07] MEDS ORDERED: TEMAZEPAM 15 MG CAP PO PRN (21:00)
[2017-09-08] VITALS (12 sets, daily range): BP systolic 123–129; BP diastolic 78–80; PULSE 45–50; RESP 16–20; TEMP 97.4–98.6; O2SAT 98–99
[2017-09-08] MEDS: ceFAZolin 2 GM PREMIX 50 ML IV SCH (03:18)
[2017-09-08] MEDS: ACETAMINOPHEN/HYDROcodone 325 MG/10 MG TAB PO PRN (03:56)
[2017-09-08 08:04] LABS: PROTHROMBIN TIME - PATIENT 11.1 SEC (9.8-11.6)
[2017-09-08] MEDS ORDERED: lamoTRIgine 25 MG TAB PO SCH (09:00)
[2017-09-08] MEDS ORDERED: CITALOPRAM HYDROBROMIDE 20 MG TAB PO SCH (09:00)
[2017-09-08] MEDS ORDERED: ASPIRIN 81 MG CHEW TAB CHEW SCH (09:00)
[2017-09-08] MEDS ORDERED: lamoTRIgine 100 MG TAB PO SCH (09:00)
[2017-09-08] MEDS ORDERED: FUROSEMIDE 40 MG TAB PO SCH (09:00)
[2017-09-08] MEDS ORDERED: LISINOPRIL 5 MG TAB PO SCH (09:00)
[2017-09-08] MEDS ORDERED: CEPH-460 PO (09:06)
--- NOTE | 2017-09-08 09:10 | PD.CARD.PN ---
Subjective Subjective Remarks Feels okay. Objective Medications Current Medications Medications (Trade) Dose Ordered Sig/Bradley Route Start Time Stop Time Status Last Admin Sodium Chloride 500 ml @ 30 mls/hr [id number] IV 09/07/17 08:30 Sodium Chloride 1,000 ml @ 30 mls/hr Q24H IV 09/07/17 08:30 Cefazolin Sodium/ Dextrose 50 ml @ 100 mls/hr EARRING MAKER IV 09/07/17 08:30 09/10/17 08:29 09/07/17 11:13 Vancomycin HCl 1000 mg/Sodium Chloride 250 ml @ 250 mls/hr EARRING MAKER IV 09/07/17 08:30 09/10/17 08:29 09/07/17 11:13 (Ativan) 1 mg EARRING MAKER SL 09/07/17 08:30 09/10/17 08:29 (Betadine 5% Antisepsis Kit) 2 applic EARRING MAKER EACH NARE 09/07/17 08:30 09/10/17 08:29 09/07/17 08:34 (Bactroban Nasal 2% Oint) 1 applic EARRING MAKER NASAL 09/07/17 08:30 09/10/17 08:29 (Chlorhexidine 2% Cloth) 3 pack EARRING MAKER TOPICAL 09/07/17 08:30 09/10/17 08:29 09/07/17 08:34 Lactated Ringer's 1,000 ml @ 30 mls/hr Q24H PRN IV 09/07/17 08:30 09/10/17 08:29 Sodium Chloride 500 ml @ 30 mls/hr [id number] PRN IV 09/07/17 08:30 09/10/17 08:29 (Lopressor) 25 mg EARRING MAKER PRN PO 09/07/17 08:30 09/10/17 08:29 (Betadine 5% Antisepsis Kit) 1 applic EARRING MAKER PRN EACH NARE 09/07/17 08:30 09/10/17 08:29 (Chlorhexidine 2% Cloth) 3 pack EARRING MAKER PRN TOPICAL 09/07/17 08:30 09/10/17 08:29 (NovoLIN R INJ) See Protocol Table ... EARRING MAKER PRN SQ 09/07/17 08:30 09/10/17 08:29 (Ativan Inj) 0.5 mg UNSCH PRN IV PUSH 09/07/17 15:00 09/08/17 14:59 (Atropine Inj) 0.5 mg UNSCH PRN IV PUSH 09/07/17 16:00 Sodium Chloride 250 ml @ 500 mls/hr UNSCH X1 PRN IV 09/07/17 14:00 09/08/17 23:59 (Reglan Inj) 10 mg Q4H PRN IV PUSH 09/07/17 14:00 (Zofran Inj) 4 mg Q4H PRN IV PUSH 09/07/17 14:00 (Xylocaine 1% Inj (50 ml)) 10 ml UNSCH PRN INFIL 09/07/17 16:00 09/08/17 15:59 Cefazolin Sodium/ Dextrose 50 ml @ 100 mls/hr Q8H IV 09/07/17 19:00 09/08/17 11:29 09/08/17 03:18 (Restoril) 15 mg HS PRN PO 09/07/17 21:00 (Milk Of Magnesia Liq) 30 ml Q6H PRN PO 09/07/17 16:00 (Zofran Inj) 4 mg Q4H PRN IV PUSH 09/07/17 14:00 (NS Flush) 2 ml BID IV FLUSH 09/07/17 21:00 09/07/17 19:43 (NS Flush) 2 ml UNSCH PRN IV FLUSH 09/07/17 15:00 (Aspirin Chew) 81 mg DAILY CHEW 09/08/17 09:00 (Coreg) 6.25 mg Q12HR PO 09/07/17 21:00 09/07/17 19:42 (CeleXA) 20 mg DAILY PO 09/08/17 09:00 (Lasix) 40 mg DAILY PO 09/08/17 09:00 (LaMICtal) 100 mg DAILY PO 09/08/17 09:00 (Prinivil) 5 mg DAILY PO 09/08/17 09:00 (Desyrel) 100 mg HS PO 09/07/17 21:00 09/07/17 20:45 ([place] 10-325 Mg) 1 tab Q4H PRN PO 09/07/17 16:00 09/08/17 03:56 Miscellaneous Information ALL NURSING DEPARTME... UNSCH PRN .XX 09/07/17 12:45 09/08/17 12:44 (LaMICtal) 50 mg DAILY PO 09/08/17 09:00 Vital Signs / I&O Vital Signs Date Time Temp Pulse Resp B/P (MAP) Pulse Ox O2 Delivery O2 Flow Rate FiO2 09/08/17 08:00 49 09/08/17 08:00 98.6 46 20 129/80 (96) 98 09/08/17 07:00 46 09/08/17 06:00 47 09/08/17 05:00 46 09/08/17 04:00 45 09/08/17 03:16 97.4 47 16 123/78 (93) 99 09/08/17 03:00 45 09/08/17 02:00 45 09/08/17 01:00 46 09/08/17 00:00 46 09/07/17 23:00 97.4 48 18 115/67 (83) 95 09/07/17 23:00 49 09/07/17 22:06 99 09/07/17 22:01 48 09/07/17 21:00 60 09/07/17 20:00 48 09/07/17 19:47 97.7 53 18 111/59 (76) 98 09/07/17 19:00 50 09/07/17 16:00 44 09/07/17 15:00 98.0 48 20 135/86 (102) 97 09/07/17 15:00 48 09/07/17 14:00 42 09/07/17 13:45 42 18 136/82 (100) 100 09/07/17 13:30 42 09/07/17 13:30 42 18 135/53 (80) 100 09/07/17 13:15 48 18 128/86 (100) 100 09/07/17 13:01 50 18 137/87 (104) 100 09/07/17 13:00 97.9 50 20 128/88 (101) 99 I/O 09/07/17 09/07/17 09/07/17 09/08/17 09/08/17 09/08/17 07:00 15:00 23:00 07:00 15:00 23:00 Intake Total 570 ml 240 ml Output Total 350 ml 600 ml Balance 220 ml -360 ml Intake Oral 520 ml IV Total 50 ml 240 ml Output Urine Total 350 ml 600 ml Physical Exam GENERAL: Well-nourished, well-developed patient. SKIN: Warm and dry. Groin sites soft with no bruising or bleeding. Left chest wall incision well approximated without erythema or drainage. HEAD: Normocephalic. EYES: No scleral icterus. No injection or drainage. NECK: Supple, trachea midline. No JVD or lymphadenopathy. CARDIOVASCULAR: Regular rate and rhythm without murmurs, gallops, or rubs. RESPIRATORY: Breath sounds equal bilaterally. No accessory muscle use. GASTROINTESTINAL: Abdomen soft, non-tender, nondistended. EXTREMITIES: No cyanosis, or edema. NEUROLOGICAL: Awake, alert, and oriented x 3. Non-focal. Laboratory Laboratory Tests Test 09/08/17 07:03 Prothrombin Time 11.1 SEC Prothromb Time International Ratio 1.0 RATIO Activated Partial Thromboplast Time 28.0 SEC Imaging Last Impressions Chest X-Ray 09/07/17 0000 Signed Impressions: Service Date/Time: September 14:14 - CONCLUSION: 1. There is no evidence of pneumothorax. Reyes Knowles MD Assessment and Plan Problem List: (1) S/P ICD (internal cardiac defibrillator) procedure ICD Codes: Z95.810 - Presence of automatic (implantable) cardiac defibrillator Status: Acute Plan: Stable for discharge home. Follow-up with Dr. hollins in 2 weeks per my discussion with him. (2) Ischemic cardiomyopathy ICD Codes: I25.5 - Ischemic cardiomyopathy Status: Chronic Plan: Medications optimized. Stable status post ICD implantation for sudden cardiac prevention. Emily Godoy Sep 08, 2017 09:09
--- NOTE | 2017-09-08 09:10 | PD.CARD.PN ---
Subjective Subjective Remarks Feels okay. Objective Medications Current Medications Medications (Trade) Dose Ordered Sig/Bradley Route Start Time Stop Time Status Last Admin Sodium Chloride 500 ml @ 30 mls/hr [id number] IV 09/07/17 08:30 Sodium Chloride 1,000 ml @ 30 mls/hr Q24H IV 09/07/17 08:30 Cefazolin Sodium/ Dextrose 50 ml @ 100 mls/hr BARREL BRANDER IV 09/07/17 08:30 09/10/17 08:29 09/07/17 11:13 Vancomycin HCl 1000 mg/Sodium Chloride 250 ml @ 250 mls/hr BARREL BRANDER IV 09/07/17 08:30 09/10/17 08:29 09/07/17 11:13 (Ativan) 1 mg BARREL BRANDER SL 09/07/17 08:30 09/10/17 08:29 (Betadine 5% Antisepsis Kit) 2 applic BARREL BRANDER EACH NARE 09/07/17 08:30 09/10/17 08:29 09/07/17 08:34 (Bactroban Nasal 2% Oint) 1 applic BARREL BRANDER NASAL 09/07/17 08:30 09/10/17 08:29 (Chlorhexidine 2% Cloth) 3 pack BARREL BRANDER TOPICAL 09/07/17 08:30 09/10/17 08:29 09/07/17 08:34 Lactated Ringer's 1,000 ml @ 30 mls/hr Q24H PRN IV 09/07/17 08:30 09/10/17 08:29 Sodium Chloride 500 ml @ 30 mls/hr [id number] PRN IV 09/07/17 08:30 09/10/17 08:29 (Lopressor) 25 mg BARREL BRANDER PRN PO 09/07/17 08:30 09/10/17 08:29 (Betadine 5% Antisepsis Kit) 1 applic BARREL BRANDER PRN EACH NARE 09/07/17 08:30 09/10/17 08:29 (Chlorhexidine 2% Cloth) 3 pack BARREL BRANDER PRN TOPICAL 09/07/17 08:30 09/10/17 08:29 (NovoLIN R INJ) See Protocol Table ... BARREL BRANDER PRN SQ 09/07/17 08:30 09/10/17 08:29 (Ativan Inj) 0.5 mg UNSCH PRN IV PUSH 09/07/17 15:00 09/08/17 14:59 (Atropine Inj) 0.5 mg UNSCH PRN IV PUSH 09/07/17 16:00 Sodium Chloride 250 ml @ 500 mls/hr UNSCH X1 PRN IV 09/07/17 14:00 09/08/17 23:59 (Reglan Inj) 10 mg Q4H PRN IV PUSH 09/07/17 14:00 (Zofran Inj) 4 mg Q4H PRN IV PUSH 09/07/17 14:00 (Xylocaine 1% Inj (50 ml)) 10 ml UNSCH PRN INFIL 09/07/17 16:00 09/08/17 15:59 Cefazolin Sodium/ Dextrose 50 ml @ 100 mls/hr Q8H IV 09/07/17 19:00 09/08/17 11:29 09/08/17 03:18 (Restoril) 15 mg HS PRN PO 09/07/17 21:00 (Milk Of Magnesia Liq) 30 ml Q6H PRN PO 09/07/17 16:00 (Zofran Inj) 4 mg Q4H PRN IV PUSH 09/07/17 14:00 (NS Flush) 2 ml BID IV FLUSH 09/07/17 21:00 09/07/17 19:43 (NS Flush) 2 ml UNSCH PRN IV FLUSH 09/07/17 15:00 (Aspirin Chew) 81 mg DAILY CHEW 09/08/17 09:00 (Coreg) 6.25 mg Q12HR PO 09/07/17 21:00 09/07/17 19:42 (CeleXA) 20 mg DAILY PO 09/08/17 09:00 (Lasix) 40 mg DAILY PO 09/08/17 09:00 (LaMICtal) 100 mg DAILY PO 09/08/17 09:00 (Prinivil) 5 mg DAILY PO 09/08/17 09:00 (Desyrel) 100 mg HS PO 09/07/17 21:00 09/07/17 20:45 ([place] 10-325 Mg) 1 tab Q4H PRN PO 09/07/17 16:00 09/08/17 03:56 Miscellaneous Information ALL NURSING DEPARTME... UNSCH PRN .XX 09/07/17 12:45 09/08/17 12:44 (LaMICtal) 50 mg DAILY PO 09/08/17 09:00 Vital Signs / I&O Vital Signs Date Time Temp Pulse Resp B/P (MAP) Pulse Ox O2 Delivery O2 Flow Rate FiO2 09/08/17 08:00 49 09/08/17 08:00 98.6 46 20 129/80 (96) 98 09/08/17 07:00 46 09/08/17 06:00 47 09/08/17 05:00 46 09/08/17 04:00 45 09/08/17 03:16 97.4 47 16 123/78 (93) 99 09/08/17 03:00 45 09/08/17 02:00 45 09/08/17 01:00 46 09/08/17 00:00 46 09/07/17 23:00 97.4 48 18 115/67 (83) 95 09/07/17 23:00 49 09/07/17 22:06 99 09/07/17 22:01 48 09/07/17 21:00 60 09/07/17 20:00 48 09/07/17 19:47 97.7 53 18 111/59 (76) 98 09/07/17 19:00 50 09/07/17 16:00 44 09/07/17 15:00 98.0 48 20 135/86 (102) 97 09/07/17 15:00 48 09/07/17 14:00 42 09/07/17 13:45 42 18 136/82 (100) 100 09/07/17 13:30 42 09/07/17 13:30 42 18 135/53 (80) 100 09/07/17 13:15 48 18 128/86 (100) 100 09/07/17 13:01 50 18 137/87 (104) 100 09/07/17 13:00 97.9 50 20 128/88 (101) 99 I/O 09/07/17 09/07/17 09/07/17 09/08/17 09/08/17 09/08/17 07:00 15:00 23:00 07:00 15:00 23:00 Intake Total 570 ml 240 ml Output Total 350 ml 600 ml Balance 220 ml -360 ml Intake Oral 520 ml IV Total 50 ml 240 ml Output Urine Total 350 ml 600 ml Physical Exam GENERAL: Well-nourished, well-developed patient. SKIN: Warm and dry. Groin sites soft with no bruising or bleeding. Left chest wall incision well approximated without erythema or drainage. HEAD: Normocephalic. EYES: No scleral icterus. No injection or drainage. NECK: Supple, trachea midline. No JVD or lymphadenopathy. CARDIOVASCULAR: Regular rate and rhythm without murmurs, gallops, or rubs. RESPIRATORY: Breath sounds equal bilaterally. No accessory muscle use. GASTROINTESTINAL: Abdomen soft, non-tender, nondistended. EXTREMITIES: No cyanosis, or edema. NEUROLOGICAL: Awake, alert, and oriented x 3. Non-focal. Laboratory Laboratory Tests Test 09/08/17 07:03 Prothrombin Time 11.1 SEC Prothromb Time International Ratio 1.0 RATIO Activated Partial Thromboplast Time 28.0 SEC Imaging Last Impressions Chest X-Ray 09/07/17 0000 Signed Impressions: Service Date/Time: September 14:14 - CONCLUSION: 1. There is no evidence of pneumothorax. Reyes Knowles MD Assessment and Plan Problem List: (1) S/P ICD (internal cardiac defibrillator) procedure ICD Codes: Z95.810 - Presence of automatic (implantable) cardiac defibrillator Status: Acute Plan: Stable for discharge home. Follow-up with Dr. hollins in 2 weeks per my discussion with him. (2) Ischemic cardiomyopathy ICD Codes: I25.5 - Ischemic cardiomyopathy Status: Chronic Plan: Medications optimized. Stable status post ICD implantation for sudden cardiac prevention. Emily Godoy Sep 08, 2017 09:09
--- NOTE | 2017-09-08 09:10 | PD.CARD.PN ---
Subjective Subjective Remarks Feels okay. Objective Medications Current Medications Medications (Trade) Dose Ordered Sig/Bradley Route Start Time Stop Time Status Last Admin Sodium Chloride 500 ml @ 30 mls/hr [id number] IV 09/07/17 08:30 Sodium Chloride 1,000 ml @ 30 mls/hr Q24H IV 09/07/17 08:30 Cefazolin Sodium/ Dextrose 50 ml @ 100 mls/hr DIESEL TRUCK CRANE OPERATOR IV 09/07/17 08:30 09/10/17 08:29 09/07/17 11:13 Vancomycin HCl 1000 mg/Sodium Chloride 250 ml @ 250 mls/hr DIESEL TRUCK CRANE OPERATOR IV 09/07/17 08:30 09/10/17 08:29 09/07/17 11:13 (Ativan) 1 mg D[employer]EL [employer] OPERATOR SL 09/07/17 08:30 09/10/17 08:29 (Betadine 5% Antisepsis Kit) 2 applic DIESEL TRUCK CRANE OPERATOR EACH NARE 09/07/17 08:30 09/10/17 08:29 09/07/17 08:34 (Bactroban Nasal 2% Oint) 1 applic DIESEL TR[employer] CR[employer] OPERATOR NASAL 09/07/17 08:30 09/10/17 08:29 (Chlorhexidine 2% Cloth) 3 pack DIESEL TRUCK CRANE OPERATOR TOPICAL 09/07/17 08:30 09/10/17 08:29 09/07/17 08:34 Lactated Ringer's 1,000 ml @ 30 mls/hr Q24H PRN IV 09/07/17 08:30 09/10/17 08:29 Sodium Chloride 500 ml @ 30 mls/hr [id number] PRN IV 09/07/17 08:30 09/10/17 08:29 (Lopressor) 25 mg DIESEL TRUCK CRANE OPERATOR PRN PO 09/07/17 08:30 09/10/17 08:29 (Betadine 5% Antisepsis Kit) 1 applic DIESEL TRUCK CRANE OPERATOR PRN EACH NARE 09/07/17 08:30 09/10/17 08:29 (Chlorhexidine 2% Cloth) 3 pack DIESEL TR[employer] CR[employer] OPERATOR PRN TOPICAL 09/07/17 08:30 09/10/17 08:29 (NovoLIN R INJ) See Protocol Table ... DIESEL TRUCK CRANE OPERATOR PRN SQ 09/07/17 08:30 09/10/17 08:29 (Ativan Inj) 0.5 mg UNSCH PRN IV PUSH 09/07/17 15:00 09/08/17 14:59 (Atropine Inj) 0.5 mg UNSCH PRN IV PUSH 09/07/17 16:00 Sodium Chloride 250 ml @ 500 mls/hr UNSCH X1 PRN IV 09/07/17 14:00 09/08/17 23:59 (Reglan Inj) 10 mg Q4H PRN IV PUSH 09/07/17 14:00 (Zofran Inj) 4 mg Q4H PRN IV PUSH 09/07/17 14:00 (Xylocaine 1% Inj (50 ml)) 10 ml UNSCH PRN INFIL 09/07/17 16:00 09/08/17 15:59 Cefazolin Sodium/ Dextrose 50 ml @ 100 mls/hr Q8H IV 09/07/17 19:00 09/08/17 11:29 09/08/17 03:18 (Restoril) 15 mg HS PRN PO 09/07/17 21:00 (Milk Of Magnesia Liq) 30 ml Q6H PRN PO 09/07/17 16:00 (Zofran Inj) 4 mg Q4H PRN IV PUSH 09/07/17 14:00 (NS Flush) 2 ml BID IV FLUSH 09/07/17 21:00 09/07/17 19:43 (NS Flush) 2 ml UNSCH PRN IV FLUSH 09/07/17 15:00 (Aspirin Chew) 81 mg DAILY CHEW 09/08/17 09:00 (Coreg) 6.25 mg Q12HR PO 09/07/17 21:00 09/07/17 19:42 (CeleXA) 20 mg DAILY PO 09/08/17 09:00 (Lasix) 40 mg DAILY PO 09/08/17 09:00 (LaMICtal) 100 mg DAILY PO 09/08/17 09:00 (Prinivil) 5 mg DAILY PO 09/08/17 09:00 (Desyrel) 100 mg HS PO 09/07/17 21:00 09/07/17 20:45 ([place] 10-325 Mg) 1 tab Q4H PRN PO 09/07/17 16:00 09/08/17 03:56 Miscellaneous Information ALL NURSING DEPARTME... UNSCH PRN .XX 09/07/17 12:45 09/08/17 12:44 (LaMICtal) 50 mg DAILY PO 09/08/17 09:00 Vital Signs / I&O Vital Signs Date Time Temp Pulse Resp B/P (MAP) Pulse Ox O2 Delivery O2 Flow Rate FiO2 09/08/17 08:00 49 09/08/17 08:00 98.6 46 20 129/80 (96) 98 09/08/17 07:00 46 09/08/17 06:00 47 09/08/17 05:00 46 09/08/17 04:00 45 09/08/17 03:16 97.4 47 16 123/78 (93) 99 09/08/17 03:00 45 09/08/17 02:00 45 09/08/17 01:00 46 09/08/17 00:00 46 09/07/17 23:00 97.4 48 18 115/67 (83) 95 09/07/17 23:00 49 09/07/17 22:06 99 09/07/17 22:01 48 09/07/17 21:00 60 09/07/17 20:00 48 09/07/17 19:47 97.7 53 18 111/59 (76) 98 09/07/17 19:00 50 09/07/17 16:00 44 09/07/17 15:00 98.0 48 20 135/86 (102) 97 09/07/17 15:00 48 09/07/17 14:00 42 09/07/17 13:45 42 18 136/82 (100) 100 09/07/17 13:30 42 09/07/17 13:30 42 18 135/53 (80) 100 09/07/17 13:15 48 18 128/86 (100) 100 09/07/17 13:01 50 18 137/87 (104) 100 09/07/17 13:00 97.9 50 20 128/88 (101) 99 I/O 09/07/17 09/07/17 09/07/17 09/08/17 09/08/17 09/08/17 07:00 15:00 23:00 07:00 15:00 23:00 Intake Total 570 ml 240 ml Output Total 350 ml 600 ml Balance 220 ml -360 ml Intake Oral 520 ml IV Total 50 ml 240 ml Output Urine Total 350 ml 600 ml Physical Exam GENERAL: Well-nourished, well-developed patient. SKIN: Warm and dry. Groin sites soft with no bruising or bleeding. Left chest wall incision well approximated without erythema or drainage. HEAD: Normocephalic. EYES: No scleral icterus. No injection or drainage. NECK: Supple, trachea midline. No JVD or lymphadenopathy. CARDIOVASCULAR: Regular rate and rhythm without murmurs, gallops, or rubs. RESPIRATORY: Breath sounds equal bilaterally. No accessory muscle use. GASTROINTESTINAL: Abdomen soft, non-tender, nondistended. EXTREMITIES: No cyanosis, or edema. NEUROLOGICAL: Awake, alert, and oriented x 3. Non-focal. Laboratory Laboratory Tests Test 09/08/17 07:03 Prothrombin Time 11.1 SEC Prothromb Time International Ratio 1.0 RATIO Activated Partial Thromboplast Time 28.0 SEC Imaging Last Impressions Chest X-Ray 09/07/17 0000 Signed Impressions: Service Date/Time: September 14:14 - CONCLUSION: 1. There is no evidence of pneumothorax. Reyes Knowles MD Assessment and Plan Problem List: (1) S/P ICD (internal cardiac defibrillator) procedure ICD Codes: Z95.810 - Presence of automatic (implantable) cardiac defibrillator Status: Acute Plan: Stable for discharge home. Follow-up with Dr. hollins in 2 weeks per my discussion with him. (2) Ischemic cardiomyopathy ICD Codes: I25.5 - Ischemic cardiomyopathy Status: Chronic Plan: Medications optimized. Stable status post ICD implantation for sudden cardiac prevention. Emily Godoy Sep 08, 2017 09:09
[2017-09-08] MEDS: CARVEDILOL 6.25 MG TAB PO SCH (09:45)
--- NOTE | 2017-09-08 09:59 | EKG ---
Date Performed: 09/07/2017 Time Performed: 14:21:24 PTAGE: 57 years EKG: Sinus bradycardia. Prolonged QT interval Possible septal infarct - age undetermined Lateral T wave changes are nonspecific Abnormal ECG PREVIOUS TRACING : 09/07/2017 08.27 Compared to prior tracing no significant change DOCTOR: Dieter Stephens Interpretating Date/Time 09/08/2017 09:59:29
--- NOTE | 2017-09-08 09:59 | EKG ---
Date Performed: 09/07/2017 Time Performed: 08:27:20 PTAGE: 57 years EKG: Sinus bradycardia. Prolonged QT interval Anteroseptal infarct - age undetermined Abnormal E CG PREVIOUS TRACING : 11/19/2016 10.27 Since prior tracing, sinus rate is slower. Anterior T-waves are more prominent. DOCTOR: Dieter Stephens Interpretating Date/Time 09/08/2017 09:59:17
--- NOTE | 2017-09-08 12:10 | EKG ---
Date Performed: 09/08/2017 Time Performed: 03:53:32 PTAGE: 57 years EKG: Sinus bradycardia. Prolonged QT interval Possible septal infarct - age undetermined Lateral T wave changes are nonspecific Abnormal ECG NO PREVIOUS TRACING DOCTOR: Dieter Stephens Interpretating Date/Time 09/08/2017 12:08:09
== END 2017-09-08 10:40 | disposition home or self-care (01) ==
LOC: HDOC 07:48 → HDIC 07:48 → HCIN 13:05 → HDOC 09-08 10:40
PROVIDERS: ATTEND Internal Medicine Interventional Cardiology
DX: I50.9 Heart failure, unspecified (principal); I25.10 Atherosclerotic heart disease of native coronary artery without angina pectoris; I25.5 Ischemic cardiomyopathy; I08.1 Rheumatic disorders of both mitral and tricuspid valves; I10 Essential (primary) hypertension; R06.00 Dyspnea, unspecified; R53.83 Other fatigue; F17.210 Nicotine dependence, cigarettes, uncomplicated; Z79.82 Long term (current) use of aspirin
CPT/HCPCS: 00530; 33249; 71010; 80048; 85025; 85610; 85730; 86850; 86900; 86901; 93005; 93620; C1722; C1730; C1895; J0690; J3370; J7050